=== PATIENT | female | born 2000 | race Caucasian/White ===

== ENCOUNTER 2018-03-22 22:51 | Outpatient (CLI) | END 2018-03-23 01:40 | disposition home or self-care (01) ==

== ENCOUNTER 2018-03-24 13:58 | Inpatient (IN) | END 2018-03-26 16:02 | disposition home or self-care (01) | DRG 832 ==

== ENCOUNTER 2018-05-01 15:53 | Outpatient (CLI) | payer BC ==
[~2018-05-01] VITALS: Ht 154.9 cm; Wt 75.0 kg
[~2018-05-01 15:53] MED LIST: PREN-21 PO
[2018-05-01 16:03] VITALS: Ht 154.9 cm; Wt 75.0 kg
[2018-05-01 16:04] VITALS: BP 132/75; PULSE 80; RESP 18
[2018-05-01] MEDS ORDERED: LACTATED RINGER'S 1,000 ML IV ONE (17:30)
[2018-05-01] MEDS ORDERED: LACTATED RINGER'S 1,000 ML IV SCH (17:30)
[2018-05-01] MEDS ORDERED: BETAMET NA PHOS/AC(6 MG/ML) 2 ML INJ SYG IM ONE (19:30)
[2018-05-01] MEDS ORDERED: AL HYDROX/MG HYDROX/SIMETH 30 ML CUP PO PRN (21:00)
--- NOTE | 2018-05-02 05:28 | TRIAGE ---
OB Triage Datetime Report Generated by CPN: 05/02/2018 05:27 Datetime: 05/02/2018 21:00 Stage of : OB Triage Labor Evaluation Frequency: X5 Monitor Mode: External Duration (sec)2399: 60-90 Quality: Mild Pattern: Normal: <= 5 Contractions in 10 Minutes Resting Tone [place]: Relaxed Heart Rate FHR Baseline Rate: 125 Monitor Mode: External US FHR Baseline Changes: No Baseline Change Variability: Moderate 6-25 bpm Accelerations: 15X15 Decelerations: None Category: Category I Datetime: 05/02/2018 20:00 Stage of : OB Triage Labor Evaluation Frequency: X1 Monitor Mode: External Duration (sec)2399: 40 Quality: Mild Pattern: Normal: <= 5 Contractions in 10 Minutes Resting Tone [place]: Relaxed Heart Rate FHR Baseline Rate: 125 Monitor Mode: External US FHR Baseline Changes: No Baseline Change Variability: Moderate 6-25 bpm Accelerations: 15X15 Decelerations: None Category: Category I Datetime: 05/01/2018 20:25 Stage of : OB Triage Datetime: 05/01/2018 19:31 Monitor Mode: External US Datetime: 05/01/2018 18:53 Labor Evaluation Frequency: 0 Pattern: Normal: <= 5 Contractions in 10 Minutes Resting Tone [place]: Relaxed Heart Rate FHR Baseline Rate: 135 Monitor Mode: External US FHR Baseline Changes: No Baseline Change Variability: Moderate 6-25 bpm Accelerations: 15X15 Decelerations: None Category: Category I Datetime: 05/01/2018 18:00 Labor Evaluation Frequency: 0 Pattern: Normal: <= 5 Contractions in 10 Minutes Resting Tone [place]: Relaxed Heart Rate FHR Baseline Rate: 135 Monitor Mode: External US FHR Baseline Changes: No Baseline Change Variability: Moderate 6-25 bpm Accelerations: 15X15 Decelerations: None Category: Category I Datetime: 05/01/2018 16:50 Labor Evaluation Frequency: occas Monitor Mode: External Duration (sec)2399: 50-60 Quality: Mild Pattern: Normal: <= 5 Contractions in 10 Minutes Resting Tone [place]: Relaxed Heart Rate FHR Baseline Rate: 135 Monitor Mode: External US Variability: Moderate 6-25 bpm Accelerations: 15X15 Decelerations: None Category: Category I Datetime: 05/01/2018 16:06 Assessment Type: Triage Maternal Assessment Level of Consciousness: Fully Conscious DTR's/Clonus: DTRs 2+; No Clonus Headache: Denies Blurred Vision: No Respiratory Effort: Unlabored; Regular Rhythm; Equal Expansion Breath Sounds, Left: Clear and Equal Breath Sounds, Right: Clear and Equal Nausea/Vomiting: Denies RUQ Epigastric Pain: Denies Lower Extremities Edema: None Degree: None Upper Extremities Edema: None Degree: None Facial Edema: None Fall Risk Assessment History of Falling: (0) No Secondary Diagnosis: (0) No Ambulatory Aid: (0) Bedrest/Nurse Assist IV Therapy: (0) No Gait: (0) Normal/Bedrest/Immobile Mental Status: (0) Oriented to Own Ability Fall Score: 0 Fall Risk Score Definition: No Risk: No action required Datetime: 05/01/2018 16:05 Time of Arrival: 05/01/2018 15:44 EGA: 36.4 Arrived By: Ambulatory Arrived From: Home Chief Complaint: gallstones Movement: Present Contractions: Denies/Absent Rupture of Membranes: Denies Vaginal Bleeding: None Vaginal Discharge: Denies Recent Sexual Intercouse: Denies Abdominal Trauma: Not Applicable Patient Complaints: Other Initial Plan: nst Datetime: 03/26/2018 11:23 Temperature Route: Oral Datetime: 03/26/2018 09:58 Labor Evaluation Frequency: NONE Monitor Mode: External Pattern: Normal: <= 5 Contractions in 10 Minutes Resting Tone [place]: Relaxed Heart Rate FHR Baseline Rate: 125 Monitor Mode: External US FHR Baseline Changes: No Baseline Change Variability: Moderate 6-25 bpm Accelerations: 15X15 Decelerations: None Category: Category I Datetime: 03/26/2018 07:45 Assessment Type: Ongoing Assessment Maternal Assessment Level of Consciousness: Fully Conscious DTR's/Clonus: DTRs 2+; No Clonus Headache: Denies Blurred Vision: No Respiratory Effort: Unlabored; Regular Rhythm; Equal Expansion Breath Sounds, Left: Clear and Equal Breath Sounds, Right: Clear and Equal Nausea/Vomiting: Denies RUQ Epigastric Pain: Denies Lower Extremities Edema: None Upper Extremities Edema: None Facial Edema: None Fall Risk Assessment History of Falling: (0) No Secondary Diagnosis: (0) No Ambulatory Aid: (0) Bedrest/Nurse Assist IV Therapy: (20) Yes Gait: (0) Normal/Bedrest/Immobile Mental Status: (0) Oriented to Own Ability Fall Score: 20 Fall Risk Score Definition: No Risk: No action required Datetime: 03/26/2018 07:20 Stage of : Antepartum Datetime: 03/26/2018 06:35 Stage of : Antepartum Datetime: 03/26/2018 05:29 Stage of : Antepartum Temperature Route: Oral Contraction Comments: PT DENIES CRAMPING Comments: PT STATES + FM Pain Presence: None/Denies Pain Type: N/A Pain Assessment Comments: PT DENIES ANY NEEDS AT THIS TIME. Vaginal Exam Membrane Status: Intact Vaginal Bleeding: None Datetime: 03/26/2018 03:23 Stage of : Antepartum Pain Presence: None/Denies Pain Type: N/A Pain Assessment Comments: PT DENIES ANY NEEDS AT THIS TIME. Datetime: 03/26/2018 00:13 Stage of : Antepartum Temperature Route: Oral Contraction Comments: PT DENIES CRAMPING Comments: PT STATES + FM Pain Presence: None/Denies Pain Type: N/A Pain Assessment Comments: PT DENIES ANY NEEDS AT THIS TIME Vaginal Exam Membrane Status: Intact Vaginal Bleeding: None Datetime: 03/25/2018 22:37 Monitor Mode: External Resting Tone [place]: Relaxed Contraction Comments: REMOVED. NST COMPLETED. Heart Rate FHR Baseline Rate: 130 Monitor Mode: External US Variability: Moderate 6-25 bpm Accelerations: 15X15 Decelerations: None Category: Category I Comments: REMOVED. NST COMPLETED. Pain Presence: None/Denies Pain Type: N/A Datetime: 03/25/2018 21:51 Monitor Mode: External US Datetime: 03/25/2018 21:35 Monitor Mode: External Contraction Comments: APPLIED FOR NST Monitor Mode: External US Comments: APPLIED FOR NST Datetime: 03/25/2018 20:11 Stage of : Antepartum Assessment Type: Ongoing Assessment Maternal Assessment Level of Consciousness: Fully Conscious DTR's/Clonus: DTRs 2+; No Clonus Headache: Denies Blurred Vision: No Respiratory Effort: Unlabored; Regular Rhythm; Equal Expansion Breath Sounds, Left: Clear and Equal Breath Sounds, Right: Clear and Equal Nausea/Vomiting: Denies RUQ Epigastric Pain: Denies Lower Extremities Edema: None Degree: None Upper Extremities Edema: None Degree: None Facial Edema: None Temperature Route: Oral Fall Risk Assessment History of Falling: (0) No Secondary Diagnosis: (0) No Ambulatory Aid: (0) Bedrest/Nurse Assist IV Therapy: (0) No Gait: (0) Normal/Bedrest/Immobile Mental Status: (0) Oriented to Own Ability Fall Score: 0 Fall Risk Score Definition: No Risk: No action required Contraction Comments: PT DENIES CRAMPING Comments: PT STATES + FM Pain Assessment Pain Scale: 1 Pain Presence: Intermittent Pain Type: Stabbing Pain Location: RUQ Pain Goal: 2 Pain Relief Measures: Comfort Measures Pain Assessment Comments: PT STATES IT COMES AND GOES Vaginal Exam Membrane Status: Intact Vaginal Bleeding: None Datetime: 03/25/2018 14:33 Pain Assessment Pain Scale: 2 Pain Presence: None/Denies Pain Type: Sharp Pain Assessment Comments: urq Datetime: 03/25/2018 14:32 Labor Evaluation Frequency: 0 Monitor Mode: External Resting Tone [place]: Relaxed Datetime: 03/25/2018 12:30 Heart Rate FHR Baseline Rate: 130 Monitor Mode: External US FHR Baseline Changes: No Baseline Change Variability: Moderate 6-25 bpm Accelerations: 15X15 Decelerations: None Category: Category I Datetime: 03/25/2018 11:48 Labor Evaluation Frequency: 0 Monitor Mode: External Resting Tone [place]: Relaxed Heart Rate FHR Baseline Rate: 140 Monitor Mode: External US FHR Baseline Changes: No Baseline Change Variability: Moderate 6-25 bpm Accelerations: 15X15 Decelerations: None Category: Category I Datetime: 03/25/2018 10:47 Labor Evaluation Frequency: 1 Monitor Mode: External Duration (sec)2399: 50 Quality: Mild Resting Tone [place]: Relaxed Heart Rate FHR Baseline Rate: 130 Monitor Mode: External US FHR Baseline Changes: No Baseline Change Variability: Moderate 6-25 bpm Accelerations: 15X15 Decelerations: None Category: Category I Pain Presence: None/Denies Datetime: 03/25/2018 10:26 Pain Presence: None/Denies Datetime: 03/25/2018 09:45 Assessment Type: Ongoing Assessment Maternal Assessment Level of Consciousness: Fully Conscious DTR's/Clonus: DTRs 2+; No Clonus Headache: Denies Blurred Vision: No Respiratory Effort: Unlabored; Regular Rhythm; Equal Expansion Breath Sounds, Left: Clear and Equal Breath Sounds, Right: Clear and Equal Nausea/Vomiting: Denies RUQ Epigastric Pain: Denies Facial Edema: None Fall Risk Assessment History of Falling: (0) No Secondary Diagnosis: (0) No Ambulatory Aid: (0) Bedrest/Nurse Assist IV Therapy: (20) Yes Gait: (0) Normal/Bedrest/Immobile Mental Status: (0) Oriented to Own Ability Fall Score: 20 Fall Risk Score Definition: No Risk: No action required Datetime: 03/25/2018 09:22 Labor Evaluation Frequency: 0 Monitor Mode: External Resting Tone [place]: Relaxed Heart Rate FHR Baseline Rate: 135 Monitor Mode: External US FHR Baseline Changes: No Baseline Change Variability: Moderate 6-25 bpm Accelerations: 15X15 Decelerations: None Category: Category I Datetime: 03/25/2018 09:21 Pain Assessment Pain Scale: 2 Pain Assessment Comments: ruq Datetime: 03/25/2018 07:20 Labor Evaluation Frequency: x1 Monitor Mode: External Duration (sec)2399: 70 Quality: Mild Resting Tone [place]: Relaxed Heart Rate FHR Baseline Rate: 135 Monitor Mode: External US Variability: Moderate 6-25 bpm Accelerations: 15X15 Decelerations: None Category: Category I Pain Presence: None/Denies Datetime: 03/25/2018 06:20 Labor Evaluation Frequency: x1 Monitor Mode: External Duration (sec)2399: 50 Quality: Mild Resting Tone [place]: Relaxed Heart Rate FHR Baseline Rate: 135 Monitor Mode: External US Variability: Moderate 6-25 bpm Accelerations: 15X15 Decelerations: None Category: Category I Pain Presence: None/Denies Datetime: 03/25/2018 05:20 Labor Evaluation Frequency: 0 Monitor Mode: External Duration (sec)2399: denies Resting Tone [place]: Relaxed Heart Rate FHR Baseline Rate: 135 Monitor Mode: External US Variability: Moderate 6-25 bpm Accelerations: 15X15 Decelerations: None Category: Category I Pain Presence: None/Denies Datetime: 03/25/2018 04:20 Labor Evaluation Frequency: 0 Monitor Mode: External Duration (sec)2399: denies Resting Tone [place]: Relaxed Heart Rate FHR Baseline Rate: 135 Monitor Mode: External US Variability: Moderate 6-25 bpm Accelerations: 15X15 Decelerations: None Category: Category I Pain Presence: None/Denies Datetime: 03/25/2018 03:22 Labor Evaluation Frequency: x1 Monitor Mode: External Duration (sec)2399: 50 Quality: Mild Resting Tone [place]: Relaxed Heart Rate FHR Baseline Rate: 135 Monitor Mode: External US Variability: Moderate 6-25 bpm Accelerations: 15X15 Decelerations: None Category: Category I Pain Presence: None/Denies Datetime: 03/25/2018 02:20 Labor Evaluation Frequency: 0 Monitor Mode: External Duration (sec)2399: denies Resting Tone [place]: Relaxed Heart Rate FHR Baseline Rate: 135 Monitor Mode: External US Variability: Moderate 6-25 bpm Accelerations: 15X15 Decelerations: None Category: Category I Pain Presence: None/Denies Datetime: 03/25/2018 01:20 Labor Evaluation Frequency: x1 Monitor Mode: External Duration (sec)2399: 60 Quality: Mild Resting Tone [place]: Relaxed Heart Rate FHR Baseline Rate: 135 Monitor Mode: External US Variability: Moderate 6-25 bpm Accelerations: 15X15 Decelerations: None Category: Category I Pain Presence: None/Denies Datetime: 03/25/2018 00:20 Labor Evaluation Frequency: 0 Monitor Mode: External Resting Tone [place]: Relaxed Heart Rate FHR Baseline Rate: 145 Monitor Mode: External US Variability: Minimal - Undetectable to <=5 bpm Accelerations: 15X15 Decelerations: None Category: Category I Pain Presence: None/Denies Datetime: 03/24/2018 23:20 Labor Evaluation Frequency: 0 Monitor Mode: External Duration (sec)2399: denies Resting Tone [place]: Relaxed Heart Rate FHR Baseline Rate: 140 Monitor Mode: External US Variability: Moderate 6-25 bpm Accelerations: 15X15 Decelerations: None Category: Category I Pain Presence: None/Denies Datetime: 03/24/2018 22:20 Labor Evaluation Frequency: 0 Monitor Mode: External Duration (sec)2399: denies Resting Tone [place]: Relaxed Heart Rate FHR Baseline Rate: 145 Monitor Mode: External US Variability: Moderate 6-25 bpm Accelerations: 15X15 Decelerations: None Category: Category I Pain Presence: None/Denies Datetime: 03/24/2018 21:20 Labor Evaluation Frequency: 0 Monitor Mode: External Duration (sec)2399: denies Resting Tone [place]: Relaxed Heart Rate FHR Baseline Rate: 140 Monitor Mode: External US Variability: Moderate 6-25 bpm Accelerations: 15X15 Decelerations: None Category: Category I Pain Presence: None/Denies Datetime: 03/24/2018 20:20 Labor Evaluation Frequency: x1 per hr Monitor Mode: External Quality: Mild Resting Tone [place]: Relaxed Heart Rate FHR Baseline Rate: 145 Monitor Mode: External US Variability: Moderate 6-25 bpm Accelerations: 15X15 Decelerations: None Category: Category I Comments: from 1919 to 2019 Pain Presence: None/Denies Datetime: 03/24/2018 19:10 Stage of : Antepartum Assessment Type: Ongoing Assessment Maternal Assessment Level of Consciousness: Fully Conscious DTR's/Clonus: DTRs 2+; No Clonus Headache: Denies Blurred Vision: No Respiratory Effort: Unlabored; Regular Rhythm; Equal Expansion Breath Sounds, Left: Clear and Equal Breath Sounds, Right: Clear and Equal Nausea/Vomiting: Denies RUQ Epigastric Pain: Denies Lower Extremities Edema: None Degree: None Upper Extremities Edema: None Degree: None Facial Edema: None Temperature Route: Oral Fall Risk Assessment History of Falling: (0) No Secondary Diagnosis: (0) No Ambulatory Aid: (0) Bedrest/Nurse Assist IV Therapy: (0) No Gait: (0) Normal/Bedrest/Immobile Mental Status: (0) Oriented to Own Ability Fall Score: 0 Fall Risk Score Definition: No Risk: No action required Pain Presence: None/Denies Datetime: 03/24/2018 18:16 Labor Evaluation Frequency: 0 Monitor Mode: External Heart Rate FHR Baseline Rate: 145 Monitor Mode: External US FHR Baseline Changes: No Baseline Change Variability: Moderate 6-25 bpm Accelerations: 15X15 Decelerations: None Category: Category I Pain Presence: None/Denies Datetime: 03/24/2018 17:10 Labor Evaluation Frequency: 0 Monitor Mode: External Heart Rate FHR Baseline Rate: 140 Monitor Mode: External US FHR Baseline Changes: No Baseline Change Variability: Moderate 6-25 bpm Accelerations: 15X15 Decelerations: None Category: Category I Pain Presence: None/Denies Datetime: 03/24/2018 16:10 Labor Evaluation Frequency: 0 Monitor Mode: External Heart Rate FHR Baseline Rate: 135 Monitor Mode: External US FHR Baseline Changes: No Baseline Change Variability: Moderate 6-25 bpm Accelerations: 15X15 Decelerations: None Category: Category I Pain Presence: None/Denies Datetime: 03/24/2018 15:42 Monitor Mode: External US Decelerations: Variable Datetime: 03/24/2018 15:01 Stage of : Antepartum Assessment Type: Admission Assessment Vaginal Bleeding: None Maternal Assessment Level of Consciousness: Fully Conscious DTR's/Clonus: DTRs 2+; No Clonus Headache: Denies Blurred Vision: No Respiratory Effort: Unlabored; Regular Rhythm; Equal Expansion Breath Sounds, Left: Clear and Equal Breath Sounds, Right: Clear and Equal Nausea/Vomiting: Denies RUQ Epigastric Pain: Denies Lower Extremities Edema: None Degree: None Upper Extremities Edema: None Degree: None Facial Edema: None Fall Risk Assessment History of Falling: (0) No Secondary Diagnosis: (0) No Ambulatory Aid: (0) Bedrest/Nurse Assist IV Therapy: (0) No Gait: (0) Normal/Bedrest/Immobile Mental Status: (0) Oriented to Own Ability Fall Score: 0 Fall Risk Score Definition: No Risk: No action required Labor Evaluation Frequency: 0 Monitor Mode: External Heart Rate FHR Baseline Rate: 140 Monitor Mode: External US FHR Baseline Changes: No Baseline Change Variability: Moderate 6-25 bpm Accelerations: 15X15 Decelerations: None Category: Category I Pain Assessment Pain Scale: 4 Pain Presence: Intermittent Pain Type: Ache Pain Type: Dull; Ache Pain Location: Abdomen; Back Datetime: 03/24/2018 14:30 Stage of : OB Triage Maternal Assessment Level of Consciousness: Fully Conscious DTR's/Clonus: DTRs 1+ Headache: Denies Breath Sounds, Left: Clear and Equal Breath Sounds, Right: Clear and Equal Nausea/Vomiting: Denies RUQ Epigastric Pain: Denies Labor Evaluation Frequency: OCC Monitor Mode: External Duration (sec)2399: 50-60 Quality: Mild Pattern: Normal: <= 5 Contractions in 10 Minutes Resting Tone [place]: Relaxed Heart Rate FHR Baseline Rate: 135 Monitor Mode: External [place] Variability: Moderate 6-25 bpm Accelerations: 15X15 Decelerations: None Category: Category I Pain Assessment Pain Scale: 6 Pain Presence: Constant Pain Type: Ache Pain Location: Back Pain Goal: 3 Vaginal Exam Membrane Status: Intact Datetime: 03/24/2018 13:58 Maternal Assessment Level of Consciousness: Fully Conscious DTR's/Clonus: DTRs 1+ Headache: Denies Blurred Vision: No Respiratory Effort: Unlabored Breath Sounds, Left: Clear and Equal Breath Sounds, Right: Clear and Equal Nausea/Vomiting: Denies RUQ Epigastric Pain: Denies Facial Edema: None Labor Evaluation Frequency: X1 Monitor Mode: External Duration (sec)2399: 50-60 Quality: Mild Pattern: Normal: <= 5 Contractions in 10 Minutes Resting Tone [place]: Relaxed Heart Rate FHR Baseline Rate: 135 Monitor Mode: External US Variability: Moderate 6-25 bpm Accelerations: 15X15 Decelerations: None Category: Category I Pain Assessment Pain Scale: 6 Pain Presence: Constant Pain Type: Ache Pain Location: Back Pain Goal: 3 Vaginal Exam Membrane Status: Intact Datetime: 03/24/2018 13:00 Assessment Type: Triage Maternal Assessment Level of Consciousness: Fully Conscious DTR's/Clonus: DTRs 2+; No Clonus Headache: Denies Blurred Vision: No Respiratory Effort: Unlabored; Regular Rhythm; Equal Expansion Breath Sounds, Left: Clear and Equal Breath Sounds, Right: Clear and Equal Nausea/Vomiting: Denies RUQ Epigastric Pain: Denies Lower Extremities Edema: None Degree: None Upper Extremities Edema: None Degree: None Facial Edema: None Fall Risk Assessment History of Falling: (0) No Secondary Diagnosis: (0) No Ambulatory Aid: (0) Bedrest/Nurse Assist IV Therapy: (0) No Gait: (0) Normal/Bedrest/Immobile Mental Status: (0) Oriented to Own Ability Fall Score: 0 Fall Risk Score Definition: No Risk: No action required Datetime: 03/24/2018 12:59 Time of Arrival: 03/24/2018 14:55 EGA: 31.1 Arrived By: Ambulatory Arrived From: Home Chief Complaint: PT CAME IN C/O BACK PAIN AND SOB Movement: Present Contractions: Denies/Absent Rupture of Membranes: Denies Vaginal Discharge: Denies Recent Sexual Intercouse: Denies Abdominal Trauma: Not Applicable Patient Complaints: Back Pain; Shortness of Breath Additional Patient Complaints: NONE Datetime: 03/23/2018 01:31 Labor Evaluation Frequency: X0 Monitor Mode: External Duration (sec)2399: X0 Pattern: Normal: <= 5 Contractions in 10 Minutes Resting Tone [place]: Relaxed Heart Rate FHR Baseline Rate: 135 Monitor Mode: External [place] Variability: Moderate 6-25 bpm Accelerations: 15X15 Decelerations: None Category: Category I Datetime: 03/23/2018 01:00 Stage of : OB Triage Labor Evaluation Frequency: X0 Monitor Mode: External Duration (sec)2399: X0 Pattern: Normal: <= 5 Contractions in 10 Minutes Resting Tone [place]: Relaxed Heart Rate FHR Baseline Rate: 135 Monitor Mode: External US Variability: Moderate 6-25 bpm Accelerations: 15X15 Decelerations: None Category: Category I Datetime: 03/23/2018 00:00 Labor Evaluation Frequency: X0 Monitor Mode: External Duration (sec)2399: X0 Pattern: Normal: <= 5 Contractions in 10 Minutes Resting Tone [place]: Relaxed Heart Rate FHR Baseline Rate: 135 Monitor Mode: External US Variability: Moderate 6-25 bpm Accelerations: 15X15 Decelerations: None Category: Category I Datetime: 03/22/2018 23:15 Assessment Type: Triage Maternal Assessment Level of Consciousness: Fully Conscious DTR's/Clonus: DTRs 2+; No Clonus Headache: Denies Blurred Vision: No Respiratory Effort: Unlabored; Regular Rhythm; Equal Expansion Breath Sounds, Left: Clear and Equal Breath Sounds, Right: Clear and Equal Nausea/Vomiting: Denies RUQ Epigastric Pain: Denies Lower Extremities Edema: None Upper Extremities Edema: None Facial Edema: None Fall Risk Assessment History of Falling: (0) No Secondary Diagnosis: (0) No Ambulatory Aid: (0) Bedrest/Nurse Assist IV Therapy: (0) No Gait: (0) Normal/Bedrest/Immobile Mental Status: (0) Oriented to Own Ability Fall Score: 0 Fall Risk Score Definition: No Risk: No action required Datetime: 03/22/2018 23:00 Time of Arrival: 03/22/2018 22:48 EGA: 30.6 Arrived By: Ambulatory Arrived From: Home Chief Complaint: CAME IN FOR 2ND DOSE OF BETAMETHASONE Movement: Present Contractions: Denies/Absent Rupture of Membranes: Denies Vaginal Bleeding: None (Annotations: Data stored by CPN on behalf of user) Vaginal Discharge: Denies Recent Sexual Intercouse: Denies Abdominal Trauma: Not Applicable Patient Complaints: None Time Provider Notified: 03/22/2018 23:18 Provider Notified: RHONA Initial Plan: EFM, NST, BPP, UA URINE CULTURE, CBC, TYLENOL 100MG POX1, BETAMETASONE 12 MG IMX1
[2018-05-02] MEDS ORDERED: PRENATAL VITAMIN PO SCH (09:00)
--- NOTE | 2018-05-15 02:07 | PN ---
Triage Information Date/Time 05/15/18 for service rendered on 05/01/18 late entry Reason for visit: Abd/pelvic pain Weeks of Gestation 36w4d /Para Diabetes: none Hypertention: none Additional information known to have gall stone having RUQ pain Objective Heart Rate: 130's Heart Rate Comments CAT I tracing Contractions: None Results/Medications Imaging Results BPP 8/8 MAIK 13.3 abd U/S multiple calcified gall stones markedly dilated common duct 13mm no evidence of cholecystitis add ; called Dr frazier left message for GS consult regarding common duct dilatation no response while waiting symptom got alleviated- will contact patient after speak with GS Disposition: Discharge Assessment/Plan A IUP 36w4d RUQ Pain 2 to gall stones,pain resolved P discharge home f/u after GS consult MICHA MELGOZA MD May 15, 2018 02:07
== END 2018-05-01 21:30 | disposition home or self-care (01) ==
LOC: OBT 15:53 → L-D 15:54 → UNDOADMIN 20:45 → PP1 20:45 → OBT 20:45
PROVIDERS: ATTEND Obstetrics & Gynecology
DX: O99.613 Diseases of the digestive system complicating pregnancy, third trimester (principal); K80.20 Calculus of gallbladder without cholecystitis without obstruction; Z3A.36 36 weeks gestation of pregnancy
CPT/HCPCS: 76705; 76818; 80053; 81001; 82150; 83690; 85025; 96360; 96372; J0702; J7120; Z7500; Z7610; G0463

== ENCOUNTER 2018-05-02 19:36 | Outpatient (CLI) | END 2018-05-02 21:20 | disposition home or self-care (01) ==

== ENCOUNTER 2018-05-18 20:07 | Inpatient (IN) | payer BC ==
[~2018-05-18] VITALS: Ht 154.9 cm; Wt 74.7 kg
[2018-05-18 20:29] VITALS: BP 150/97; PULSE 78; RESP 20
[2018-05-18 20:31] VITALS: Ht 154.9 cm; Wt 74.7 kg
[2018-05-18] MEDS ORDERED: LACTATED RINGER'S 1,000 ML IV PRN (20:35)
[2018-05-18] MEDS ORDERED: LACTATED RINGER'S 1,000 ML IV SCH (20:35)
[2018-05-18] MEDS ORDERED: OXYTOCIN 30 UNITS/LR 500 ML IV SCH ×2 (21:00)
[2018-05-18] MEDS ORDERED: MISOPROSTOL 200 MCG TAB PR PRN (21:00)
[2018-05-18] MEDS ORDERED: LIDOCAINE 1% (MPF) 30 ML INJ INJ PRN (21:00)
[2018-05-18] MEDS ORDERED: OXYTOCIN 30 UNITS/LR 500 ML IV PRN (21:00)
[2018-05-18] MEDS ORDERED: METHYLERGONOVINE 0.2 MG INJ IM PRN (21:00)
[2018-05-18] MEDS ORDERED: CARBOPROST 250 MCG INJ IM PRN (21:00)
[2018-05-18] MEDS ORDERED: IBUPROFEN 600 MG TAB PO PRN (21:00)
[2018-05-18] MEDS ORDERED: BUTORPHANOL 2 MG INJ IV PRN (21:00)
--- NOTE | 2018-05-18 21:08 | TRIAGE ---
OB Triage Datetime Report Generated by CPN: 05/18/2018 21:07 Datetime: 05/18/2018 21:05 Time of Arrival: 05/18/2018 20:03 EGA: 39.0 Arrived By: Ambulatory Arrived From: Home Chief Complaint: UC'S SINCE 06:30 Movement: Present Contractions: Regular Time Contractions Began: 05/18/2018 06:30 Contractions: Q5MIN Rupture of Membranes: Denies Vaginal Bleeding: None Vaginal Discharge: Denies Recent Sexual Intercouse: Denies Abdominal Trauma: Not Applicable Patient Complaints: Contractions Time Provider Notified: 05/18/2018 20:33 Provider Notified: RHONA Initial Plan: EFM, SVE, CALL OB Datetime: 05/18/2018 21:03 Time of Arrival: 05/18/2018 20:33 EGA: 39.0 Arrived By: Ambulatory Arrived From: OB TRIAGE Datetime: 05/18/2018 20:22 Vaginal Exam Dilatation (cms): 3.0 Effacement (%): 70 Station: -2 Exam By: farzad silverman Cervix, Consistency: Soft Cervix, Position: Midposition Presentation 'A': Cephalic Datetime: 05/18/2018 20:03 Stage of : OB Triage Assessment Type: Triage Maternal Assessment Level of Consciousness: Fully Conscious Headache: Denies Blurred Vision: No Respiratory Effort: Unlabored; Regular Rhythm; Equal Expansion Nausea/Vomiting: Denies RUQ Epigastric Pain: Denies Facial Edema: None Temperature Route: Axillary Fall Risk Assessment History of Falling: (0) No Secondary Diagnosis: (0) No Ambulatory Aid: (0) Bedrest/Nurse Assist IV Therapy: (0) No Gait: (0) Normal/Bedrest/Immobile Mental Status: (0) Oriented to Own Ability Fall Score: 0 Fall Risk Score Definition: No Risk: No action required Datetime: 05/02/2018 21:16 Stage of : OB Triage Labor Evaluation Monitor Mode: External Quality: Mild Pattern: Normal: <= 5 Contractions in 10 Minutes Resting Tone [place]: Relaxed Heart Rate FHR Baseline Rate: 130 Monitor Mode: External US FHR Baseline Changes: No Baseline Change Variability: Moderate 6-25 bpm Accelerations: 15X15 Decelerations: None Category: Category I Datetime: 05/02/2018 19:30 EGA: 36.5 Datetime: 05/01/2018 16:06 Fall Score: 0 Fall Risk Score Definition: No Risk: No action required Datetime: 05/01/2018 16:05 EGA: 36.4 Datetime: 03/26/2018 07:45 Fall Score: 20 Fall Risk Score Definition: No Risk: No action required Datetime: 03/25/2018 20:11 Fall Score: 0 Fall Risk Score Definition: No Risk: No action required Datetime: 03/25/2018 09:45 Fall Score: 20 Fall Risk Score Definition: No Risk: No action required Datetime: 03/24/2018 19:10 Fall Score: 0 Fall Risk Score Definition: No Risk: No action required Datetime: 03/24/2018 15:01 Fall Score: 0 Fall Risk Score Definition: No Risk: No action required Datetime: 03/24/2018 13:00 Fall Score: 0 Fall Risk Score Definition: No Risk: No action required Datetime: 03/24/2018 12:59 EGA: 31.1 Datetime: 03/22/2018 23:15 Fall Score: 0 Fall Risk Score Definition: No Risk: No action required Datetime: 03/22/2018 23:00 EGA: 30.6
[2018-05-18] MEDS ORDERED: ONDANSETRON 4 MG INJ IV STA (22:57)
[2018-05-18] MEDS ORDERED: MINERAL OIL LIGHT 10 ML VIAL ONE (23:46)
[2018-05-19] MEDS ORDERED: MINERAL OIL LIGHT 10 ML VIAL TOP PRN
--- NOTE | 2018-05-19 01:35 | HP ---
Date/Time of Note Date/Time of Note DATE: 05/19/18 TIME: 01:29 OB - History Hx of Present Free Text/Dictation 18 y.o primigravida at 6eeks in in active lavor with intact membrane. Initial VE 3cm/70/-2 EFM CAT I tracing GBS neg Her was complicated with cholelithiasis with common bile duct dilatati on admitted for expectanta managemenrt. Chief Complaint: uc's Estimated Due Date: May 25, 2018 : 1 Para: 0 Spontaneous : 0 Therapeutic : 0 Ultrasounds: Normal mid trimester US Obstetrical Complications: None Medical Complications: None, Gastrointestinal (cholelitiasis) Past Family/Social History * Past Medical, Surgical, Family and Obstetric Histories reviewed from chart. Blood Type: A+ Rubella: immune RPR/VDRL: Negative GBS Status: Negative HBsAG: Negative OB Admission Exam Vital Signs Vital Signs Vital Signs Date Temp Pulse Resp B/P (MAP) Pulse Ox O2 O2 Flow FiO2 Time Delivery Rate 05/18/18 98.5 78 20 150/97 Room Air 20:29 (114) Physical Exam HEENT: WNL Heart: Rhythm Normal Lungs: Clear, Equal Abdomen: WNL Extremities: Normal Reflexes: Normal Cervical Dilatation: 3cm Effacement: 75% Station: -2 Membranes: Intact Amniotic Fluid: Unevaluable Heart Rate: 130's Accelerations: Accelerations Present Decelerations: No Decelerations Varibility: Moderate Contractions on Admission: < 5 Minutes Apart Intensity: Moderate Last 72 hours Lab Results CBC & BMP 05/18/18 20:54 Liver Function Test 05/18/18 20:54 Alanine Aminotransferase (ALT/SGPT) 15 Albumin 4.0 Alkaline Phosphatase 298 H Aspartate Amino Transf (AST/SGOT) 28 Direct Bilirubin 0.00 Total Protein 8.2 H OB Assessment/Plan Reason for admission: active labor Other Assessment: IUP 39w cholelithiasis in labor Plan: Expectant Management MICHA MELGOZA MD May 19, 2018 01:35
--- NOTE | 2018-05-19 01:37 | LDN ---
Date/Time of Note Date/Time of Note DATE: 05/19/18 TIME: 01:35 Delivery Summary of normal female Weeks of Gestation 39w Placenta Delivered: Spontaneously Meconium: none Episiotomy: No Perineal laceration: 1 Laceration repair: 000ch gut with SH Anesthesia type: Local Estimated blood loss: 80 Sponge & Needle done & correct: Yes All needle counts correct: Yes Any foreign bodies felt in the: No Delivery Information Sex Infant Sex: female Apgars 1 Minute: 8 5 Minute: 9 Suctioning Nose & mouth suctioned at heidy: Yes Delee suction performed: No Umbilical Cord Umbilical cord with: 3 Vessels Cord presentations: no nuchal cord Cord Blood was obtained: Yes Mother & Baby Disposition Disposition Mom & Baby to Maternity; Good: Yes Mom transferred to: Other Baby to NICU: No () MICHA MELGOZA MD May 19, 2018 01:37
[2018-05-19 03:15] VITALS: BP 130/84; PULSE 70; RESP 20
[2018-05-19] MEDS ORDERED: OXYCODONE/ASPIRIN (4.88/325) TAB PO PRN ×2 (03:30)
[2018-05-19] MEDS ORDERED: METHYLERGONOVINE 0.2 MG INJ IM PRN (03:30)
[2018-05-19] MEDS ORDERED: MISOPROSTOL 200 MCG TAB PR PRN (03:30)
[2018-05-19] MEDS ORDERED: OXYTOCIN 30 UNITS/LR 500 ML IV PRN (03:30)
[2018-05-19] MEDS ORDERED: CARBOPROST 250 MCG INJ IM PRN (03:30)
[2018-05-19] MEDS ORDERED: BENZOCAINE 20% 56 ML SPRAY TOP PRN (03:30)
[2018-05-19] MEDS ORDERED: WITCH HAZEL/GLYCERIN PAD PR PRN (03:30)
[2018-05-19] MEDS ORDERED: ZOLPIDEM 5 MG TAB PO PRN (03:30)
[2018-05-19] MEDS: LANOLIN HPA 1 PKT TOP PRN ×2 (03:42→03:43)
[2018-05-19] MEDS: IBUPROFEN 600 MG TAB PO SCH ×3 (05:19→17:36)
[2018-05-19 08:00] VITALS: BP 115/55; PULSE 69; RESP 18
[2018-05-19] MEDS: PRENATAL VITAMIN PO SCH (09:19)
[2018-05-19] MEDS: SENNA/DOCUSATE NA (8.6MG/50MG) TAB PO SCH ×2 (09:19→21:42)
[2018-05-19 16:00] VITALS: BP 114/68; PULSE 88; RESP 18
--- NOTE | 2018-05-19 18:09 | QN ---
Documentation Comment doing fine without complaints vss afebrile fundus firm lochia min calf neg for tenderness Stable S/P MICHA MELGOZA MD May 19, 2018 18:09
[2018-05-19 20:00] VITALS: BP 106/58; PULSE 68; RESP 20
[2018-05-20] MEDS: IBUPROFEN 600 MG TAB PO SCH ×5 (00:31→23:26)
[2018-05-20 04:00] VITALS: BP 113/53; PULSE 62; RESP 16
[2018-05-20 08:00] VITALS: BP 96/53; PULSE 59; RESP 18
[2018-05-20] MEDS: PRENATAL VITAMIN PO SCH (08:20)
[2018-05-20] MEDS: SENNA/DOCUSATE NA (8.6MG/50MG) TAB PO SCH ×2 (08:20→21:22)
[2018-05-20 15:53] VITALS: BP 111/67; PULSE 68; RESP 18
--- NOTE | 2018-05-20 16:57 | QN ---
Documentation Comment no c/o vss afebrile fundus firm lochia min calf neg A S/P P discharge home MICHA MELGOZA MD May 20, 2018 16:57
[2018-05-20 20:30] VITALS: BP 112/65; PULSE 82; RESP 18
[2018-05-21 04:10] VITALS: BP 122/83; PULSE 77; RESP 18
[2018-05-21] MEDS: IBUPROFEN 600 MG TAB PO SCH ×3 (05:37→18:15)
[2018-05-21 08:00] VITALS: BP 112/60; PULSE 59; RESP 16
[2018-05-21] MEDS ORDERED: DIPHTH/TET/ACEL PERTUSS (ADULT) 0.5 ML VIAL IM* ONE (09:00)
[2018-05-21] MEDS: SENNA/DOCUSATE NA (8.6MG/50MG) TAB PO SCH (09:01)
[2018-05-21] MEDS: PRENATAL VITAMIN PO SCH (09:01)
[2018-05-21 15:29] VITALS: BP 122/64; PULSE 77; RESP 20
--- NOTE | 2018-05-21 19:33 | PD.PPDC ---
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
--- NOTE | 2018-05-21 19:35 | DS ---
Date/Time of Note Date/Time of Note DATE: 05/21/18 TIME: 19:34 Obstetrical Discharge Record Final Diagnosis Final Diagnosis: Term delivered Vaginal Delivery Obstetrical Delivery: Spontaneous Complications Augmentation: No Induction: No Rupture of Membranes: No Condition on Discharge Physical Assessment Last Vitals: vss afebrile Voiding: Yes Bowel Movement: No Breast: Soft, non-tender Fundus: Firm Abdomen and Incision: n/a Episiotomy: n/a Calf Tenderness: No Patient Condition: Stable MICHA MELGOZA MD May 21, 2018 19:35
[2018-05-21 19:50] VITALS: BP 133/71; PULSE 93; RESP 18
== END 2018-05-21 20:10 | disposition home or self-care (01) | DRG 807 ==
LOC: OBT 20:07 → L-D 20:08 → OBT 20:33 → L-D 20:46 → PP1 05-19 03:18
PROVIDERS: ADMIT Obstetrics & Gynecology; ATTEND Obstetrics & Gynecology
PROC: 10E0XZZ Delivery of Products of Conception, External Approach (ICD-10-PCS; principal; 2018-05-19)
DX: O99.62 Diseases of the digestive system complicating childbirth (principal); Z37.0 Single live birth; K80.20 Calculus of gallbladder without cholecystitis without obstruction; Z3A.39 39 weeks gestation of pregnancy
CPT/HCPCS: 80053; 81003; 84560; 85025; 85384; 85610; 85730; 86592; 86850; 86900; 86901; 87086; 87340; 90715; G0463; J0595; J2405; J2590; J7120

== ENCOUNTER 2018-07-06 19:06 | Emergency (ER) | payer SELFPAY ==
[~2018-07-06] VITALS: Wt 63.3 kg
== END 2018-07-06 23:48 | disposition left against medical advice (07) ==
LOC: FTE 19:06
DX: Z53.21 Procedure and treatment not carried out due to patient leaving prior to being seen by health care provider (principal)

== ENCOUNTER 2018-07-07 03:19 | Inpatient (IN) | payer BC ==
[~2018-07-07] VITALS: Ht 154.9 cm; Wt 67.2 kg
[2018-07-07 04:58] VITALS: BP 155/98; PULSE 102; RESP 18
[2018-07-07 05:00] VITALS: Ht 154.9 cm; Wt 67.2 kg
[2018-07-07] MEDS ORDERED: morphine 2 MG INJ IV PRN (06:00)
[2018-07-07] MEDS ORDERED: ONDANSETRON 4 MG INJ IV PRN (06:00)
[2018-07-07] MEDS ORDERED: NACL 0.9% 3 ML SYG IV SCH (06:00)
[2018-07-07] MEDS: DEXTROSE 5%-0.45% NACL 1,000 ML IV SCH ×3 (06:14→21:49)
--- NOTE | 2018-07-07 07:00 | HP ---
Date/Time of Note Date/Time of Note DATE: 07/07/18 TIME: 06:58 Assessment/Plan VTE Prophylaxis Risk score (from Ns)>0 risk: 1 SCD applied (from Nsg): Yes Pharmacological prophylaxis: NA/contraindicated Pharm contraindication: low risk/ambulating Lines/Catheters IV Catheter Type (from Nrsg): Saline Lock Assessment/Plan Assessment/Plan 18-year-old female with recently diagnosed gallstones transferred from an outside hospital for abdominal pain, secondary to gallstone pancreatitis and possibly cholecystitis and choledocholithiasis PLAN Keep n.p.o. with IV fluid IV antibiotic HIDA scan Surgical consult HPI/ROS Admit Date/Time Admit Date/Time Jul 07, 2018 at 04:52 Hx of Present Illness This is a 18-year-old female with a recent diagnosis of gallstones who initially presented on outside hospital complaining of abdominal pain and vomiting. Abdominal ultrasound shows cholelithiasis with possible cholecystitis as well as dilated CBD measuring 12 mm. She was transferred to [facility] for insurance reasons. At the outside facility, lipase was around 800. LFTs WNL. Patient is actually scheduled to have an outpatient cholecystectomy tomorrow, however because of the pain she decided to go to the hospital for evaluation. PMH/Family/Social Past Medical History Medical History: gallstones Medications Current Medications Dextrose/Sodium Chloride 1,000 ml @ 120 mls/hr Q8H20M IV Last administered on 07/07/18at 06:14; Admin Dose 120 MLS/HR; Start 07/07/18 at 05:55 IV Flush (NS 3 ml) 3 ml PER PROTOCOL IV ; Start 07/07/18 at 06:00 Ondansetron HCl (Zofran Inj) 4 mg Q6H PRN IV NAUSEA/VOMITING; Start 07/07/18 at 06:00 Morphine Sulfate (morphine) 2 mg Q4H PRN IV .SEVERE PAIN 7-10; Start 07/07/18 at 06:00 Coded Allergies: No Known Allergy (Unverified , 05/02/18) Past Surgical History Past Surgical Hx: no surgical history Family History Significant Family History: no pertinent family hx Social History Alcohol Use: none Smoking Status: Never smoker Drug Use: none Exam/Review of Systems Vital Signs Vitals Vital Signs Date Temp Pulse Resp B/P (MAP) Pulse Ox O2 O2 Flow FiO2 Time Delivery Rate 07/07/18 98.2 102 18 155/98 97 Room Air 04:58 (117) Exam Constitutional: alert, oriented, well developed Eyes: EOMI, PERRL Respiratory: clear to auscultation, normal air movement Cardiovascular: regular rate and rhythm, nl pulses Gastrointestinal: soft, tender Extremities: normal pulses SAI KILGORE MD Jul 07, 2018 07:00
[2018-07-07] MEDS: PIPER-TAZO 3.375 GM IV (PMX) 100 ML IVPB SCH ×4 (07:53→23:56)
[2018-07-07 08:37] VITALS: BP 148/92; PULSE 91; RESP 18
[2018-07-07] MEDS: morphine 4 MG/ML VIAL IV PRN ×2 (08:45→15:50)
--- NOTE | 2018-07-07 13:21 | CONS ---
Assessment/Plan Assessment/Plan Hospital Course (Demo Recall) Summary Assessment and Plan: Assessment: Gallstone pancreatitis Possible GOO visualized on imaging Dilated CBD- without evidence of cholelithiasis Plan: Strict n.p.o. Push IV fluids Pain management Antiemetic medication as needed EGD Dickinson with possible ERCP depending on ability to access biliary tree as well as degree of pancreatitis noted tomorrow Monitor labs [Endoscopy - risks/benefits/alternatives/indications of procedure and sedation/anesthesia discussed with patient who states understading and gives informed consent to proceed. PARQ held and questions were answered.] Patient seen in collaboration with Dr. Retana CC: CAROLYN RETANA MD ; Consultation Date/Type/Reason Admit Date/Time Jul 07, 2018 at 04:52 Date of Consultation: Jul 07, 2018 Type of Consult GI Reason for Consultation Gallstone pancreatitis Date/Time of Note DATE: 07/07/18 TIME: 13:21 Hx of Present Illness This a 18-year-old female with past medical history of cholelithiasis. Patient was first diagnosed with symptomatically lithiasis when she was 30 weeks she is now 4 weeks and presented to an outside hospital with complaints of upper abdominal pain with radiation to the back. Workup here included an MRCP which revealed dilated common bile duct measuring 10 mm distally with no evidence of obstruction mass or stone. There is mild intrahepatic biliary ductal dilation. Cholelithiasis and the moderately distended gallbladder. No evidence of acute cholecystitis. Markedly distended stomach and proximal duodenum with air-fluid level suspicious for gastric outlet obstruction. 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 She additionally had a HIDA scan which showed persistent common bile duct uptake up to 2 hours post injection and visualization of gas or intestinal activity within normal time possibly represent physiologic uptake, partial common bile duct obstruction cannot be ruled out. No evidence of cystic duct obstruction. Labs reveal normal LFTs leukocytosis of 23.6 as well as thrombocytosis. Evaluation patient complains of upper abdominal pain she is currently n.p.o. receiving morphine sulfate 4 mg every 4 hours as well as Toradol. Patient has been started on Zosyn empirically I discussed plan for EGD tomorrow with possible ERCP pending on ability to access biliary tree and degree of pancreatitis tomorrow. Reviewed risk/benefits/alternatives the patient who verbalized understanding and is agreeable to procedures. Review of Systems: A 12 system, review was conducted and is negative except as noted in the HPI or here. Past Medical History Home Meds Reported Medications Ksu950/Iron Fumarate/FA/Dss ( 19 Tablet) 1 Each Tablet, 1 EACH PO DAILY, TAB 03/22/18 Medications Current Medications Dextrose/Sodium Chloride 1,000 ml @ 120 mls/hr Q8H20M IV Last administered on 07/07/18at 06:14; Admin Dose 120 MLS/HR; Start 07/07/18 at 05:55 IV Flush (NS 3 ml) 3 ml PER PROTOCOL IV ; Start 07/07/18 at 06:00 Ondansetron HCl (Zofran Inj) 4 mg Q6H PRN IV NAUSEA/VOMITING; Start 07/07/18 at 06:00 Piperacillin Sod/ Tazobactam Sod 100 ml @ 200 mls/hr Q6 IVPB Last administered on 07/07/18at 12:10; Admin Dose 200 MLS/HR; Start 07/07/18 at 07:00 Morphine Sulfate (morphine) 4 mg Q4H PRN IV .SEVERE PAIN 7-10 Last administered on 07/07/18at 08:45; Admin Dose 4 MG; Start 07/07/18 at 08:30 Ketorolac Tromethamine (Toradol) 30 mg Q6H PRN IV PAIN LEVEL 1-3; Start 07/07/18 at 08:30; Stop 07/10/18 at 08:29 Allergies: Coded Allergies: No Known Allergy (Unverified , 05/02/18) Social History Smoking Status: Never smoker Exam/Review of Systems Exam Vitals Vital Signs Date Temp Pulse Resp B/P (MAP) Pulse Ox O2 O2 Flow FiO2 Time Delivery Rate 07/07/18 98.3 91 18 148/92 100 Room Air 08:37 (110) Constitutional: alert, oriented Head: normocephalic Eyes: nl conjunctiva ENMT: nl external ears & nose Neck: supple, non-tender Respiratory: clear to auscultation Cardiovascular: regular rate and rhythm Gastrointestinal: soft, bowel sounds, tender (upper abd) Musculoskeletal: nl extremities to inspection Results Result Diagram: 07/07/18 0708 07/07/18 0708 Results 24hrs Laboratory Tests Test 07/07/18 07:08 White Blood Count 23.6 #H Red Blood Count 4.68 # Hemoglobin 12.1 # Hematocrit 39.1 # Mean Corpuscular Volume 83.5 Mean Corpuscular Hemoglobin 25.9 L Mean Corpuscular Hemoglobin Concent 30.9 L Red Cell Distribution Width 16.8 H Platelet Count 544 #H Mean Platelet Volume 10.7 H Immature Granulocytes % 0.600 H Neutrophils % 89.3 H Segmented Neutrophils % (Manual) 88 H Band Neutrophils % (Manual) 6 Lymphocytes % 3.6 L Lymphocytes % (Manual) 3 L Monocytes % 6.3 Monocytes % (Manual) 3 Eosinophils % 0.0 Basophils % 0.2 Nucleated Red Blood Cells % 0.0 Immature Granulocytes # 0.140 H Neutrophils # 21.1 H Neutrophils # (Manual) 21.1 H Band Neutrophils # 1.4 H Lymphocytes (Manual) 0.7 L Lymphocytes # 0.9 Monocytes # 1.5 H Monocytes # (Manual) 0.7 Eosinophils # 0.0 Basophils # 0.0 Nucleated Red Blood Cells # 0.0 Platelet Estimate INCREASED Giant Platelets 1 H Polychromasia 2+ Anisocytosis 1+ Microcytosis 1+ Ovalocytes 1+ Sodium Level 145 H Potassium Level 3.7 Chloride Level 105 Carbon Dioxide Level 28 Anion Gap 12 Blood Urea Nitrogen 13 Creatinine 0.47 Est Glomerular Filtrat Rate mL/min > 60 Glucose Level 159 Calcium Level 9.8 Total Bilirubin 0.2 Direct Bilirubin 0.00 Indirect Bilirubin 0.2 Aspartate Amino Transf (AST/SGOT) 31 Alanine Aminotransferase (ALT/SGPT) 16 Alkaline Phosphatase 65 Total Protein 8.1 Albumin 4.6 Globulin 3.50 H Albumin/Globulin Ratio 1.31 Medications Medication Current Medications Dextrose/Sodium Chloride 1,000 ml @ 120 mls/hr Q8H20M IV Last administered on 07/07/18at 06:14; Admin Dose 120 MLS/HR; Start 07/07/18 at 05:55 IV Flush (NS 3 ml) 3 ml PER PROTOCOL IV ; Start 07/07/18 at 06:00 Ondansetron HCl (Zofran Inj) 4 mg Q6H PRN IV NAUSEA/VOMITING; Start 07/07/18 at 06:00 Piperacillin Sod/ Tazobactam Sod 100 ml @ 200 mls/hr Q6 IVPB Last administered on 07/07/18at 12:10; Admin Dose 200 MLS/HR; Start 07/07/18 at 07:00 Morphine Sulfate (morphine) 4 mg Q4H PRN IV .SEVERE PAIN 7-10 Last administered on 07/07/18at 08:45; Admin Dose 4 MG; Start 07/07/18 at 08:30 Ketorolac Tromethamine (Toradol) 30 mg Q6H PRN IV PAIN LEVEL 1-3; Start 07/07/18 at 08:30; Stop 07/10/18 at 08:29 XAVIER JAVIER Jul 07, 2018 13:21
[2018-07-07 14:30] VITALS: BP 148/89; PULSE 93; RESP 18
--- NOTE | 2018-07-07 15:28 | PN ---
Date/Time of Note Date/Time of Note DATE: 07/07/18 TIME: 15:16 Assessment/Plan VTE Prophylaxis Risk score (from Nsg)>0 risk: 1 Pharmacological prophylaxis: NA/contraindicated Pharm contraindication: surgical contra Lines/Catheters IV Catheter Type (from Nrsg): Peripheral IV Assessment/Plan Hospital Course 1. Gallstone pancreatitis Follow-up on HIDA and MRCP Surgery and GI consultations obtained Monitor lipase 2. Possible cholecystitis Continue IV antibiotic Result Diagram: 07/07/18 0708 07/07/18 0708 Results 24hrs Laboratory Tests Test 07/07/18 07:08 White Blood Count 23.6 #H Red Blood Count 4.68 # Hemoglobin 12.1 # Hematocrit 39.1 # Mean Corpuscular Volume 83.5 Mean Corpuscular Hemoglobin 25.9 L Mean Corpuscular Hemoglobin Concent 30.9 L Red Cell Distribution Width 16.8 H Platelet Count 544 #H Mean Platelet Volume 10.7 H Immature Granulocytes % 0.600 H Neutrophils % 89.3 H Segmented Neutrophils % (Manual) 88 H Band Neutrophils % (Manual) 6 Lymphocytes % 3.6 L Lymphocytes % (Manual) 3 L Monocytes % 6.3 Monocytes % (Manual) 3 Eosinophils % 0.0 Basophils % 0.2 Nucleated Red Blood Cells % 0.0 Immature Granulocytes # 0.140 H Neutrophils # 21.1 H Neutrophils # (Manual) 21.1 H Band Neutrophils # 1.4 H Lymphocytes (Manual) 0.7 L Lymphocytes # 0.9 Monocytes # 1.5 H Monocytes # (Manual) 0.7 Eosinophils # 0.0 Basophils # 0.0 Nucleated Red Blood Cells # 0.0 Platelet Estimate INCREASED Giant Platelets 1 H Polychromasia 2+ Anisocytosis 1+ Microcytosis 1+ Ovalocytes 1+ Sodium Level 145 H Potassium Level 3.7 Chloride Level 105 Carbon Dioxide Level 28 Anion Gap 12 Blood Urea Nitrogen 13 Creatinine 0.47 Est Glomerular Filtrat Rate mL/min > 60 Glucose Level 159 Calcium Level 9.8 Total Bilirubin 0.2 Direct Bilirubin 0.00 Indirect Bilirubin 0.2 Aspartate Amino Transf (AST/SGOT) 31 Alanine Aminotransferase (ALT/SGPT) 16 Alkaline Phosphatase 65 Total Protein 8.1 Albumin 4.6 Globulin 3.50 H Albumin/Globulin Ratio 1.31 Subjective 24 Hr Interval Summary Gastrointestinal: pain Exam/Review of Systems Exam Vitals Vital Signs Date Temp Pulse Resp B/P (MAP) Pulse Ox O2 O2 Flow FiO2 Time Delivery Rate 07/07/18 98.3 91 18 148/92 100 Room Air 08:37 (110) Constitutional: alert, oriented Respiratory: clear to auscultation Cardiovascular: regular rate and rhythm Gastrointestinal: soft; No distended Musculoskeletal: nl extremities to inspection Results Results 24hrs Laboratory Tests Test 07/07/18 07:08 White Blood Count 23.6 #H Red Blood Count 4.68 # Hemoglobin 12.1 # Hematocrit 39.1 # Mean Corpuscular Volume 83.5 Mean Corpuscular Hemoglobin 25.9 L Mean Corpuscular Hemoglobin Concent 30.9 L Red Cell Distribution Width 16.8 H Platelet Count 544 #H Mean Platelet Volume 10.7 H Immature Granulocytes % 0.600 H Neutrophils % 89.3 H Segmented Neutrophils % (Manual) 88 H Band Neutrophils % (Manual) 6 Lymphocytes % 3.6 L Lymphocytes % (Manual) 3 L Monocytes % 6.3 Monocytes % (Manual) 3 Eosinophils % 0.0 Basophils % 0.2 Nucleated Red Blood Cells % 0.0 Immature Granulocytes # 0.140 H Neutrophils # 21.1 H Neutrophils # (Manual) 21.1 H Band Neutrophils # 1.4 H Lymphocytes (Manual) 0.7 L Lymphocytes # 0.9 Monocytes # 1.5 H Monocytes # (Manual) 0.7 Eosinophils # 0.0 Basophils # 0.0 Nucleated Red Blood Cells # 0.0 Platelet Estimate INCREASED Giant Platelets 1 H Polychromasia 2+ Anisocytosis 1+ Microcytosis 1+ Ovalocytes 1+ Sodium Level 145 H Potassium Level 3.7 Chloride Level 105 Carbon Dioxide Level 28 Anion Gap 12 Blood Urea Nitrogen 13 Creatinine 0.47 Est Glomerular Filtrat Rate mL/min > 60 Glucose Level 159 Calcium Level 9.8 Total Bilirubin 0.2 Direct Bilirubin 0.00 Indirect Bilirubin 0.2 Aspartate Amino Transf (AST/SGOT) 31 Alanine Aminotransferase (ALT/SGPT) 16 Alkaline Phosphatase 65 Total Protein 8.1 Albumin 4.6 Globulin 3.50 H Albumin/Globulin Ratio 1.31 Medications Medication Current Medications Dextrose/Sodium Chloride 1,000 ml @ 120 mls/hr Q8H20M IV Last administered on 07/07/18at 06:14; Admin Dose 120 MLS/HR; Start 07/07/18 at 05:55 IV Flush (NS 3 ml) 3 ml PER PROTOCOL IV ; Start 07/07/18 at 06:00 Ondansetron HCl (Zofran Inj) 4 mg Q6H PRN IV NAUSEA/VOMITING; Start 07/07/18 at 06:00 Piperacillin Sod/ Tazobactam Sod 100 ml @ 200 mls/hr Q6 IVPB Last administered on 07/07/18at 12:10; Admin Dose 200 MLS/HR; Start 07/07/18 at 07:00 Morphine Sulfate (morphine) 4 mg Q4H PRN IV .SEVERE PAIN 7-10 Last administered on 07/07/18at 08:45; Admin Dose 4 MG; Start 07/07/18 at 08:30 Ketorolac Tromethamine (Toradol) 30 mg Q6H PRN IV PAIN LEVEL 1-3; Start 07/07/18 at 08:30; Stop 07/10/18 at 08:29 KADEEM LEGGETT Jul 07, 2018 15:28
[2018-07-07 19:54] VITALS: BP 154/93; PULSE 102; RESP 20
[2018-07-07] MEDS: KETOROLAC 30 MG INJ IV PRN (21:49)
[2018-07-08] VITALS (17 sets, daily range): BP systolic 117–141; BP diastolic 58–92; PULSE 76–111; RESP 14–27
[2018-07-08] MEDS: KETOROLAC 30 MG INJ IV PRN ×3 (04:54→19:00)
[2018-07-08] MEDS: PIPER-TAZO 3.375 GM IV (PMX) 100 ML IVPB SCH ×3 (05:06→17:59)
[2018-07-08] MEDS: DEXTROSE 5%-0.45% NACL 1,000 ML IV SCH ×2 (06:55→08:04)
--- NOTE | 2018-07-08 10:15 | CONS ---
Assessment/Plan Assessment/Plan Assessment/Plan (Daily) 18 yof , abdominal pain , labs imaging consistent with gallstone pancreatitis . LFTs normal now except for elevated Lipase . Unclear etiology for Gastric distension , possible GOO GI plan for ERCP . Once CBD evaluated , consider Lap natividad Consultation Date/Type/Reason Admit Date/Time Jul 07, 2018 at 04:52 Date of Consultation: Jul 08, 2018 Type of Consult General surgery Reason for Consultation Gallstone pancreatitis, possible choledocholithiasis, abdominal pain Requesting Provider: KADEEM LEGGETT Date/Time of Note DATE: 07/08/18 TIME: 10:07 Hx of Present Illness Patient 18-year-old female who was at outside hospital with abdominal pain right upper quadrant pain and diagnosed with a gallstone pancreatitis with elevated lipase and noted cholelithiasis unclear if there was documentation of common bile duct stones. Was transferred to [facility] because of a contract insurance. He is 4 weeks and was first diagnosed with cholelithiasis and at 30 weeks gestation. Patient complains of nausea she was also noted to have possible gastric outlet obstruction with marked distention of the stomach. Past Medical History Medical History: gallstones Home Meds Reported Medications Dyk618/Iron Fumarate/FA/Dss ( 19 Tablet) 1 Each Tablet, 1 EACH PO DAILY, TAB 03/22/18 Medications Current Medications Dextrose/Sodium Chloride 1,000 ml @ 120 mls/hr Q8H20M IV Last administered on 07/08/18at 08:04; Admin Dose 120 MLS/HR; Start 07/07/18 at 05:55 IV Flush (NS 3 ml) 3 ml PER PROTOCOL IV ; Start 07/07/18 at 06:00 Ondansetron HCl (Zofran Inj) 4 mg Q6H PRN IV NAUSEA/VOMITING Last administered on 07/07/18at 18:19; Admin Dose 4 MG; Start 07/07/18 at 06:00 Piperacillin Sod/ Tazobactam Sod 100 ml @ 200 mls/hr Q6 IVPB Last administered on 07/08/18at 05:06; Admin Dose 200 MLS/HR; Start 07/07/18 at 07:00 Morphine Sulfate (morphine) 4 mg Q4H PRN IV .SEVERE PAIN 7-10 Last administered on 07/07/18at 15:50; Admin Dose 4 MG; Start 07/07/18 at 08:30 Ketorolac Tromethamine (Toradol) 30 mg Q6H PRN IV PAIN LEVEL 1-3 Last administered on 07/08/18at 04:54; Admin Dose 30 MG; Start 07/07/18 at 08:30; Stop 07/10/18 at 08:29 Indomethacin (Indocin Supp) 100 mg ONCE ONCE NE ; Start 07/08/18 at 18:00; Stop 07/08/18 at 18:01 Allergies: Coded Allergies: No Known Allergy (Unverified , 05/02/18) Past Surgical History Past Surgical Hx: no surgical history Social History Alcohol Use: none Smoking Status: Never smoker Drug Use: none Exam/Review of Systems Exam Vitals Vital Signs Date Temp Pulse Resp B/P (MAP) Pulse Ox O2 O2 Flow FiO2 Time Delivery Rate 07/08/18 98.9 94 18 121/58 98 Room Air 08:00 (79) Intake and Output 07/07/18 07/07/18 07/08/18 1515:00 23:00 07:00 IntakeIntake Total 100 ml 1000 ml 825 ml OutputOutput Total 1 ml BalanceBalance 100 ml 1000 ml 824 ml Exam A&O x 3 Complaining of mild abdominal pain Lungs clear Cor reg rate rhythm . nl S1S2 , no rubs Abd mild distension , mild tendeerness right upper quadrant Results Result Diagram: 07/08/18 0603 07/08/18 0603 Results 24hrs Laboratory Tests Test 07/08/18 06:03 White Blood Count 19.5 H Red Blood Count 3.82 L Hemoglobin 9.8 L Hematocrit 31.8 L Mean Corpuscular Volume 83.2 Mean Corpuscular Hemoglobin 25.7 L Mean Corpuscular Hemoglobin Concent 30.8 L Red Cell Distribution Width 16.7 H Platelet Count 349 # Mean Platelet Volume 10.4 Immature Granulocytes % 0.500 H Neutrophils % 84.3 H Lymphocytes % 7.1 L Monocytes % 7.9 Eosinophils % 0.1 Basophils % 0.1 Nucleated Red Blood Cells % 0.0 Immature Granulocytes # 0.090 H Neutrophils # 16.5 H Lymphocytes # 1.4 Monocytes # 1.6 H Eosinophils # 0.0 Basophils # 0.0 Nucleated Red Blood Cells # 0.0 Sodium Level 140 Potassium Level 3.1 L Chloride Level 101 Carbon Dioxide Level 28 Anion Gap 11 Blood Urea Nitrogen 7 Creatinine 0.50 Est Glomerular Filtrat Rate mL/min > 60 Glucose Level 100 # Calcium Level 9.1 Phosphorus Level 3.0 Magnesium Level 1.8 Lipase 1582 H Medications Medication Current Medications Dextrose/Sodium Chloride 1,000 ml @ 120 mls/hr Q8H20M IV Last administered on 07/08/18 08:04; Admin Dose 120 MLS/HR; Start 07/07/18 at 05:55 IV Flush (NS 3 ml) 3 ml PER PROTOCOL IV ; Start 07/07/18 at 06:00 Ondansetron HCl (Zofran Inj) 4 mg Q6H PRN IV NAUSEA/VOMITING Last administered on 07/07/18at 18:19; Admin Dose 4 MG; Start 07/07/18 at 06:00 Piperacillin Sod/ Tazobactam Sod 100 ml @ 200 mls/hr Q6 IVPB Last administered on 07/08/18at 05:06; Admin Dose 200 MLS/HR; Start 07/07/18 at 07:00 Morphine Sulfate (morphine) 4 mg Q4H PRN IV .SEVERE PAIN 7-10 Last administered on 07/07/18at 15:50; Admin Dose 4 MG; Start 07/07/18 at 08:30 Ketorolac Tromethamine (Toradol) 30 mg Q6H PRN IV PAIN LEVEL 1-3 Last administered on 07/08/18at 04:54; Admin Dose 30 MG; Start 07/07/18 at 08:30; Stop 07/10/18 at 08:29 Indomethacin (Indocin Supp) 100 mg ONCE ONCE NE ; Start 07/08/18 at 18:00; Stop 07/08/18 at 18:01 SAI BARCENAS MD Jul 08, 2018 10:15
--- NOTE | 2018-07-08 14:22 | PN ---
Date/Time of Note Date/Time of Note DATE: 07/08/18 TIME: 14:18 Assessment/Plan VTE Prophylaxis Risk score (from Nsg)>0 risk: 1 Pharmacological prophylaxis: NA/contraindicated Pharm contraindication: low risk/ambulating Lines/Catheters IV Catheter Type (from Nrsg): Peripheral IV Assessment/Plan Hospital Course 1. Gallstone pancreatitis MRCP shows dilated common bile duct as well as cholelithiasis and distended stomach HIDA scan is negative for cholecystitis Surgery and GI consultations appreciated, plan is for EGD and possible ERCP today Monitor lipase 2. Possible gastric outlet obstruction Follow EGD results Prophylaxis: Ambulation Result Diagram: 07/08/18 0603 07/08/18 0603 Results 24hrs Laboratory Tests Test 07/08/18 06:03 White Blood Count 19.5 H Red Blood Count 3.82 L Hemoglobin 9.8 L Hematocrit 31.8 L Mean Corpuscular Volume 83.2 Mean Corpuscular Hemoglobin 25.7 L Mean Corpuscular Hemoglobin Concent 30.8 L Red Cell Distribution Width 16.7 H Platelet Count 349 # Mean Platelet Volume 10.4 Immature Granulocytes % 0.500 H Neutrophils % 84.3 H Lymphocytes % 7.1 L Monocytes % 7.9 Eosinophils % 0.1 Basophils % 0.1 Nucleated Red Blood Cells % 0.0 Immature Granulocytes # 0.090 H Neutrophils # 16.5 H Lymphocytes # 1.4 Monocytes # 1.6 H Eosinophils # 0.0 Basophils # 0.0 Nucleated Red Blood Cells # 0.0 Sodium Level 140 Potassium Level 3.1 L Chloride Level 101 Carbon Dioxide Level 28 Anion Gap 11 Blood Urea Nitrogen 7 Creatinine 0.50 Est Glomerular Filtrat Rate mL/min > 60 Glucose Level 100 # Calcium Level 9.1 Phosphorus Level 3.0 Magnesium Level 1.8 Lipase 1582 H Subjective 24 Hr Interval Summary Gastrointestinal: pain Exam/Review of Systems Exam Vitals Vital Signs Date Temp Pulse Resp B/P (MAP) Pulse Ox O2 O2 Flow FiO2 Time Delivery Rate 07/08/18 98.9 94 18 121/58 98 Room Air 08:00 (79) Intake and Output 07/07/18 07/07/18 07/08/18 1515:00 23:00 07:00 IntakeIntake Total 100 ml 1000 ml 825 ml OutputOutput Total 1 ml BalanceBalance 100 ml 1000 ml 824 ml Constitutional: alert, oriented Respiratory: clear to auscultation Cardiovascular: regular rate and rhythm Gastrointestinal: soft, tender; No distended Musculoskeletal: nl extremities to inspection Results Results 24hrs Laboratory Tests Test 07/08/18 06:03 White Blood Count 19.5 H Red Blood Count 3.82 L Hemoglobin 9.8 L Hematocrit 31.8 L Mean Corpuscular Volume 83.2 Mean Corpuscular Hemoglobin 25.7 L Mean Corpuscular Hemoglobin Concent 30.8 L Red Cell Distribution Width 16.7 H Platelet Count 349 # Mean Platelet Volume 10.4 Immature Granulocytes % 0.500 H Neutrophils % 84.3 H Lymphocytes % 7.1 L Monocytes % 7.9 Eosinophils % 0.1 Basophils % 0.1 Nucleated Red Blood Cells % 0.0 Immature Granulocytes # 0.090 H Neutrophils # 16.5 H Lymphocytes # 1.4 Monocytes # 1.6 H Eosinophils # 0.0 Basophils # 0.0 Nucleated Red Blood Cells # 0.0 Sodium Level 140 Potassium Level 3.1 L Chloride Level 101 Carbon Dioxide Level 28 Anion Gap 11 Blood Urea Nitrogen 7 Creatinine 0.50 Est Glomerular Filtrat Rate mL/min > 60 Glucose Level 100 # Calcium Level 9.1 Phosphorus Level 3.0 Magnesium Level 1.8 Lipase 1582 H Medications Medication Current Medications Dextrose/Sodium Chloride 1,000 ml @ 120 mls/hr Q8H20M IV Last administered on 07/08/18 08:04; Admin Dose 120 MLS/HR; Start 07/07/18 at 05:55 IV Flush (NS 3 ml) 3 ml PER PROTOCOL IV ; Start 07/07/18 at 06:00 Ondansetron HCl (Zofran Inj) 4 mg Q6H PRN IV NAUSEA/VOMITING Last administered on 07/07/18at 18:19; Admin Dose 4 MG; Start 07/07/18 at 06:00 Piperacillin Sod/ Tazobactam Sod 100 ml @ 200 mls/hr Q6 IVPB Last administered on 07/08/18at 12:24; Admin Dose 200 MLS/HR; Start 07/07/18 at 07:00 Morphine Sulfate (morphine) 4 mg Q4H PRN IV .SEVERE PAIN 7-10 Last administered on 07/07/18at 15:50; Admin Dose 4 MG; Start 07/07/18 at 08:30 Ketorolac Tromethamine (Toradol) 30 mg Q6H PRN IV PAIN LEVEL 1-3 Last administered on 07/08/18at 12:42; Admin Dose 30 MG; Start 07/07/18 at 08:30; Stop 07/10/18 at 08:29 Indomethacin (Indocin Supp) 100 mg ONCE ONCE OK ; Start 07/08/18 at 18:00; St op 07/08/18 at 18:01 KADEEM LEGGETT Jul 08, 2018 14:22
[2018-07-08] MEDS ORDERED: POTASSIUM CHLORIDE 30 MEQ in SOD CHLORIDE 0.9% 1,000 ML IV SCH (14:30)
[2018-07-08] MEDS: POTASSIUM CHLORIDE 100 ML IVPB SCH ×2 (15:27→19:00)
[2018-07-08] MEDS ORDERED: FENTAnyl 50 MCG/ML VIAL IV PRN ×5 (16:30→22:00)
[2018-07-08] MEDS ORDERED: EPHEDrine SULFATE 50 MG/5 ML SYG IV PRN ×2 (16:30→22:00)
[2018-07-08] MEDS ORDERED: METOCLOPRAMIDE 10 MG INJ IV PRN ×2 (16:30→22:00)
[2018-07-08] MEDS ORDERED: ONDANSETRON 4 MG INJ IV PRN ×3 (16:30→23:30)
[2018-07-08] MEDS ORDERED: hydrALAzine 20 MG INJ IV PRN ×2 (16:30→22:00)
[2018-07-08] MEDS ORDERED: LABETALOL HCL 20MG INJ IV PRN ×2 (16:30→22:00)
--- NOTE | 2018-07-08 16:35 | PREAC ---
Date/Time of Note Date/Time of Note DATE: 07/08/18 TIME: 16:30 Anesthesia Eval and Record Evaluation Time Pre-Procedure Interview DATE: 07/08/18 TIME: 16:30 Age 18 Sex female NPO: 8 hrs Preoperative diagnosis Abdominal Pain Planned procedure EGD Past Medical History Past Medical History: Includes Renal: Other (hypokalemia) Heme: Anemia : : (1), Para: (1) Surgery & Anesthesia Issues No known issue Meds Anticoagulation: No Beta Miranda within 24 hr: No Reason Beta Miranda not given: Pt. not on B-Miranda Reported Medications Xie180/Iron Fumarate/FA/Dss ( 19 Tablet) 1 Each Tablet, 1 EACH PO DAILY, TAB 03/22/18 Current Medications IV Flush (NS 3 ml) 3 ml PER PROTOCOL IV ; Start 07/07/18 at 06:00 Ondansetron HCl (Zofran Inj) 4 mg Q6H PRN IV NAUSEA/VOMITING Last administered on 07/07/18at 18:19; Admin Dose 4 MG; Start 07/07/18 at 06:00 Piperacillin Sod/ Tazobactam Sod 100 ml @ 200 mls/hr Q6 IVPB Last administered on 07/08/18at 12:24; Admin Dose 200 MLS/HR; Start 07/07/18 at 07:00 Morphine Sulfate (morphine) 4 mg Q4H PRN IV .SEVERE PAIN 7-10 Last administered on 07/07/18at 15:50; Admin Dose 4 MG; Start 07/07/18 at 08:30 Ketorolac Tromethamine (Toradol) 30 mg Q6H PRN IV PAIN LEVEL 1-3 Last administered on 07/08/18at 12:42; Admin Dose 30 MG; Start 07/07/18 at 08:30; Stop 07/10/18 at 08:29 Indomethacin (Indocin Supp) 100 mg ONCE ONCE [place] ; Start 07/08/18 at 18:00; Stop 07/08/18 at 18:01 Potassium Chloride 100 ml @ 50 mls/hr Q2H IVPB Last administered on 07/08/18at 15:27; Admin Dose 50 MLS/HR; Start 07/08/18 at 14:30; Stop 07/08/18 at 18:29 Potassium Chloride 30 meq/ Sodium Chloride 1,015 ml @ 100 mls/hr Q10H9M IV Last administered on 07/08/18at 15:27; Admin Dose 100 MLS/HR; Start 07/08/18 at 14:30 Meds reviewed: Yes Allergies Coded Allergies: No Known Allergy (Unverified , 05/02/18) Allergies Reviewed: Yes Labs/Studies Labs Reviewed: Reviewed by anesthesiologist Result Diagram: 07/08/18 0603 07/08/18 0603 Laboratory Tests 07/08/18 06:03 test: N/A ( 4 wks ) Studies: ECG (n/a), CXR (n/a) Pre-procedure Exam Last vitals Vital Signs Date Temp Pulse Resp B/P (MAP) Pulse Ox O2 O2 Flow FiO2 Time Delivery Rate 07/08/18 98.9 94 18 121/58 98 Room Air 08:00 (79) Airway: Adequate mouth opening, Adequate thyromental dist Mallampati: Mallampati II Teeth: Normal Lung: Normal Heart: Normal ASA Physical Status ASA physical status: 1 Emergency: None Planned Anesthetic General/MAC: MAC Planned Pain Management Parenteral pain med Pre-operative Attestations Prior to commencing anesthesia and surgery, the patient was re-evaluated, there was verification of: *The patient's identity *The results of appropriate recent lab work and preoperative vital signs *The above evaluation not changing prior to induction *Anesthetic plan, risk benefits, alternative and complications discussed with patient/family; questions answered; patient/family understands, accepts and wishes to proceed. RADHA CHUNG MD Jul 08, 2018 16:35
[2018-07-08] MEDS ORDERED: PROPOFOL 40 ML ONE (16:48)
--- NOTE | 2018-07-08 16:49 | PAC ---
Date/Time of Note Date/Time of Note DATE: 07/08/18 TIME: 16:49 Post-Anesthesia Notes Post-Anesthesia Note Last documented vital signs Vital Signs Date Temp Pulse Resp B/P (MAP) Pulse Ox O2 O2 Flow FiO2 Time Delivery Rate 07/08/18 98.9 94 18 121/58 98 Room Air 16:50 (79) Activity: WNL Respiratory function: WNL Cardiovascular function: WNL Mental status: Baseline Pain reasonably controlled: Yes Hydration appropriate: Yes Nausea/Vomiting absent: Yes RADHA CUHNG MD Jul 08, 2018 16:49
[2018-07-08] MEDS: PANTOPRAZOLE 40 MG INJ IV SCH (17:59)
[2018-07-08] MEDS ORDERED: INDOMETHACIN 50 MG SUPP PR ONE (18:00)
--- NOTE | 2018-07-08 21:06 | PREAC ---
Date/Time of Note Date/Time of Note DATE: 07/08/18 TIME: 21:04 Anesthesia Eval and Record Evaluation Time Pre-Procedure Interview DATE: 07/08/18 TIME: 21:04 Age 18 Sex female NPO: 8 hrs Preoperative diagnosis Cholelithiasis Planned procedure Laparoscopic Cholecystectomy Past Medical History Past Medical History: Includes Endo: Other (Hypokalemia) Heme: Anemia : : (1), Para: (1), Other (post 4 weeks) Surgery & Anesthesia Issues No known issue Meds Anticoagulation: No Beta Miranda within 24 hr: No Reason Beta Miranda not given: Pt. not on B-Miranda Reported Medications Qdu111/Iron Fumarate/FA/Dss ( 19 Tablet) 1 Each Tablet, 1 EACH PO DAILY, TAB 03/22/18 Current Medications IV Flush (NS 3 ml) 3 ml PER PROTOCOL IV ; Start 07/07/18 at 06:00 Ondansetron HCl (Zofran Inj) 4 mg Q6H PRN IV NAUSEA/VOMITING Last administered on 07/07/18 18:19; Admin Dose 4 MG; Start 07/07/18 at 06:00 Piperacillin Sod/ Tazobactam Sod 100 ml @ 200 mls/hr Q6 IVPB Last administered on 07/08/18 17:59; Admin Dose 200 MLS/HR; Start 07/07/18 at 07:00 Morphine Sulfate (morphine) 4 mg Q4H PRN IV .SEVERE PAIN 7-10 Last administered on 07/07/18at 15:50; Admin Dose 4 MG; Start 07/07/18 at 08:30 Ketorolac Tromethamine (Toradol) 30 mg Q6H PRN IV PAIN LEVEL 1-3 Last administered on 07/08/18at 19:00; Admin Dose 30 MG; Start 07/07/18 at 08:30; Stop 07/10/18 at 08:29 Potassium Chloride 30 meq/ Sodium Chloride 1,015 ml @ 100 mls/hr Q10H9M IV Last administered on 07/08/18at 15:27; Admin Dose 100 MLS/HR; Start 07/08/18 at 14:30 Pantoprazole (Protonix Iv) 40 mg BID@06,18 IV Last administered on 07/08/18at 17:59; Admin Dose 40 MG; Start 07/08/18 at 18:00 Meds reviewed: Yes Allergies Coded Allergies: No Known Allergy (Unverified , 05/02/18) Allergies Reviewed: Yes Labs/Studies Labs Reviewed: Reviewed by anesthesiologist Result Diagram: 07/08/18 0603 07/08/18 0603 Laboratory Tests 07/08/18 06:03 test: Negative Studies: ECG (n/a), CXR (n/a) Pre-procedure Exam Last vitals Vital Signs Date Temp Pulse Resp B/P (MAP) Pulse Ox O2 O2 Flow FiO2 Time Delivery Rate 07/08/18 94 20 138/78 98 Room Air 17:20 (98) 07/08/18 98.8 16:54 Airway: Adequate mouth opening, Adequate thyromental dist Mallampati: Mallampati II Teeth: Normal Lung: Normal Heart: Normal ASA Physical Status ASA physical status: 2 Emergency: None Planned Anesthetic General/MAC: ETT Nerve block: TAP (bilateral) Planned Pain Management Single shot nerve block, Parenteral pain med Pre-operative Attestations Prior to commencing anesthesia and surgery, the patient was re-evaluated, there was verification of: *The patient's identity *The results of appropriate recent lab work and preoperative vital signs *The above evaluation not changing prior to induction *Anesthetic plan, risk benefits, alternative and complications discussed with patient/family; questions answered; patient/family understands, accepts and wishes to proceed. RADHA CHUNG MD Jul 08, 2018 21:06
[2018-07-08] MEDS ORDERED: ROPIVACAINE 0.5 % 30 ML VIAL ONE (21:08)
[2018-07-08] MEDS ORDERED: FENTAnyl 50 MCG/ML VIAL ONE ×2 (21:08→21:53)
[2018-07-08] MEDS ORDERED: ROCURONIUM 50 MG INJ ONE (21:08)
[2018-07-08] MEDS ORDERED: MIDAZOLAM 1 MG/ML 2 ML INJ ONE (21:08)
[2018-07-08] MEDS ORDERED: PROPOFOL 20 ML ONE (21:08)
[2018-07-08] MEDS ORDERED: BUPIVACAINE 0.5%/EPI (SDV) 30 ML INJ ONE (21:10)
[2018-07-08] MEDS ORDERED: LIDOCAINE 2% (MDV) 20 ML INJ ONE (21:10)
[2018-07-08] MEDS ORDERED: CEFAZOLIN 1 GM INJ ONE (22:00)
[2018-07-08] MEDS ORDERED: DIPHENHYDRAMINE 50 MG INJ IV PRN (22:00)
[2018-07-08] MEDS ORDERED: MEPERIDINE 25 MG INJ IV PRN (22:00)
[2018-07-08] MEDS ORDERED: METOCLOPRAMIDE 10 MG INJ ONE (22:00)
[2018-07-08] MEDS ORDERED: DEXAMETHASONE 4 MG/ML 5 ML INJ ONE (22:00)
[2018-07-08] MEDS ORDERED: HYDROmorphONE 1 MG/5 ML IV SYRINGE IV PRN ×3 (22:00)
[2018-07-08] MEDS ORDERED: KETOROLAC 30 MG INJ ONE (22:00)
[2018-07-08] MEDS ORDERED: ONDANSETRON 4 MG INJ ONE (22:00)
[2018-07-08] MEDS ORDERED: NEOSTIGMINE 3 MG/3 ML SYRINGE ONE ×2 (22:36)
[2018-07-08] MEDS ORDERED: GLYCOPYRROLATE 0.4 MG INJ ONE (22:36)
--- NOTE | 2018-07-08 23:02 | PAC ---
Date/Time of Note Date/Time of Note DATE: 07/08/18 TIME: 23:02 Post-Anesthesia Notes Post-Anesthesia Note Last documented vital signs Vital Signs Date Temp Pulse Resp B/P (MAP) Pulse Ox O2 O2 Flow FiO2 Time Delivery Rate 07/08/18 98.1 99 19 119/63 99 face mask 8 liter 23:08 (81) 07/08/18 Room Air 17:20 Activity: WNL Respiratory function: WNL Cardiovascular function: WNL Mental status: Baseline Pain reasonably controlled: Yes Hydration appropriate: Yes Nausea/Vomiting absent: Yes RADHA CHUNG MD Jul 08, 2018 23:02
--- NOTE | 2018-07-08 23:13 | OPR ---
Date/Time of Note Date/Time of Note DATE: 07/08/18 TIME: 23:06 Operative Report Free Text/Dictation Operative report Procedure Date: Jul 08, 2018 Preoperative Diagnosis Cholecystitis cholelithiasis gallstone pancreatitis Postoperative Diagnosis Same Operation/Procedure Performed Laparoscopic cholecystectomy Surgeon Sai Murcia MD see signature line Hydrologic Modeler None Anesthesia Type: general Anesthesiologist: RADHA CHUNG MD Estimated Blood Loss: 0 - 10 ml's Transfusion none Specimen Gallbladder and content Grafts/Implants none Tubes/Drains None Complications none Pt Condition Post Procedure: stable Disposition: PACU Indications Patient presented with abdominal pain elevated lipase consistent with gallstone pancreatitis. Patient also was noted to have some duodenitis and gastritis on endoscopy patient seen by general surgery I recommended that she undergo a laparoscopic cholecystectomy risk benefits alternatives were discussed including postoperative expectations. Procedure Description Patient brought to the operating placed supine position general she is a dministered with ventricular ablation patient prepped draped in standard sterile fashion orogastric tube inserted by anesthesia a tap block was performed by anesthesia. Timeout was completed. Varies needle was placed in left upper quadrant Bahena's point insufflation delivered to maintain pneumoperitoneum 50 was mercury throughout the procedure. Small stab incision was made just above the umbilicus and a 5 mm trocar was inserted under direct visualization with a 30 degree 5 mm laparoscope the varies needle was removed after being sure there was no injury or bleeding. An epigastric 11 mm trocar was inserted and 2 right-sided 5 mm trochars were inserted next self-retaining Wilbert arm was placed in the right posterior right side of the operating table patient was placed in reverse Trendelenburg . A atraumatic grasper was used to grasp the fundus of the gallbladder and lifted up over the edge of the right lobe of the liver. Second grasper on the neck of the gallbladder by Bazzi's pouch combination of suction irrigation and hook cautery and [place] dissector were used to carefully maintain a critical view and score the peritoneum along the neck of the gallbladder the cystic artery was identified versus a posterior tract along the gallbladder was skeletonized doubly clipped on the patient's eye when the gallbladder side and then divided in similar fashion the cystic duct was identified was quite dilated from passage of gallstones presumably. A single clip was placed on the gallbladder side and then a and one had distal on the proximal side and the cystic was cut partially to allow removal of the stones that had passed into the cystic duct. After this was done to allowed application of 2 additional clips proximal distal side and the duct was completely divided. Hook cautery was then used to score the peritoneum the gallbladder was taken off the liver bed small bleeders along the gallbladder fossa were controlled with monopolar cautery and clips and one clip. Gallbladder was taken off the liver bed without spillage of bile a specimen retrieval bag was placed in the epigastric port and the gallbladder placed in this and then brought out through the wound after it was stretched to accommodate delivery. Trocar was then reinserted patient for hemostasis showed good hemostasis the operative field was irrigated aspirated to clear the pneumoperitoneum was allowed to escape after insufflation halted and the trochars were removed under direct visualization. The skin incisions were closed with 4-0 Monocryl and Dermabond for dressing. She was explained the operative brought recovery in stable condition sponge needle count correct x2 SAI MURCIA MD Jul 08, 2018 23:13
[2018-07-08] MEDS ORDERED: ACETAMINOPHEN 325 MG TAB PO PRN (23:30)
[2018-07-08] MEDS ORDERED: OXYCODONE/ACETAMINOPHEN (5/325) TAB PO PRN (23:30)
[2018-07-08] MEDS ORDERED: HYDROmorphONE 0.5 MG/0.5 ML SYG IV PRN (23:30)
[2018-07-09] VITALS (8 sets, daily range): BP systolic 110–138; BP diastolic 60–89; PULSE 17–99; RESP 16–19
[2018-07-09] MEDS: PIPER-TAZO 3.375 GM IV (PMX) 100 ML IVPB SCH ×4 (00:15→17:21)
[2018-07-09] MEDS: D5W-0.45 NACL + KCL 20 MEQ 1,000 ML IV SCH ×3 (00:16→17:21)
[2018-07-09] MEDS: PANTOPRAZOLE 40 MG INJ IV SCH ×2 (05:16→17:21)
[2018-07-09] MEDS ORDERED: FAMOTIDINE 20 MG INJ IV SCH (09:00)
--- NOTE | 2018-07-09 12:10 | PDOCDIS ---
Discharge Instructions CONDITION [id number] Patient Condition: [id number] Good HOME CARE INSTRUCTIONS: [id number] Diet Instructions: [id number] Reduced Calorie ACTIVITY: [id number] Activity Restrictions: [id number] No Restrictions Avoid heavy lifting (x 4 weeks ) FOLLOW UP/APPOINTMENTS Follow-up Plan Follow-up with of GI in clinic, follow-up with Dr. Abimael Murcia of surgery 2-3 weeks, follow-up with your PCP in 1-2 weeks KADEEM LEGGETT Jul 09, 2018 12:10
--- NOTE | 2018-07-09 12:16 | DS ---
Date/Time of Note Date/Time of Note DATE: 07/09/18 TIME: 12:10 Discharge Summary Admission/Discharge Info Admit Date/Time Jul 07, 2018 at 04:52 Discharge Date/Time July 09, 2018 Discharge Diagnosis 1. Gallstone pancreatitis MRCP shows dilated common bile duct as well as cholelithiasis and distended stomach HIDA scan is negative for cholecystitis Surgery and GI consultations appreciated EGD showed gastritis, ERCP not indicated per GI Patient is status post laparoscopic cholecystectomy Patient Condition: Good Hospital Course Patient is a 18-year-old female with no past medical history except for recent and delivery. Patient presents with epigastric pain radiating to the back and was found to have gallstone pancreatitis. MRCP was done and showed dilated common bile duct as well as cholelithiasis and distended stomach, HIDA was negative for cholecystitis. Patient was seen by GI and surgery, EGD showed gastritis, ERCP was not done. Patient had a laparoscopic cholecystectomy was stable for DC. On day of discharge patient's vitals, labs and physical exam are stable, patient had no further abdominal pain and was clear for DC per GI and surgery. Home Meds Reported Medications Uya352/Iron Fumarate/FA/Dss ( 19 Tablet) 1 Each Tablet, 1 EACH PO DAILY, TAB 03/22/18 Follow-up Plan Follow-up with of GI in clinic, follow-up with Dr. Abimael Murcia of surgery 2-3 weeks, follow-up with your PCP in 1-2 weeks Primary Care Provider Not On Staff Doctor Time spent on discharge: > 30 minutes KADEEM LEGGETT Jul 09, 2018 12:16
== END 2018-07-09 18:27 | disposition home or self-care (01) | DRG 769 ==
LOC: 5EC 04:52
PROVIDERS: ADMIT Internal Medicine; ATTEND Internal Medicine
PROC: 0DB68ZX Excision of Stomach, Via Natural or Artificial Opening Endoscopic, Diagnostic (ICD-10-PCS; 2018-07-08)
PROC: 0FT44ZZ Resection of Gallbladder, Percutaneous Endoscopic Approach (ICD-10-PCS; principal; 2018-07-08 20:00)
DX: O99.63 Diseases of the digestive system complicating the puerperium (principal); K85.10 Biliary acute pancreatitis without necrosis or infection; K80.10 Calculus of gallbladder with chronic cholecystitis without obstruction; K20.9 Esophagitis, unspecified; K29.70 Gastritis, unspecified, without bleeding; K29.60 Other gastritis without bleeding
CPT/HCPCS: 74181; 78226; 80048; 80053; 83690; 83735; 84100; 85025; 88304; 88305; 88312; A9537; C9113; J0690; J1100; J1885; J2250; J2270; J2405; J2543; J2710; J2765; J2795; J3010; J3480; J7030; J7042

== ENCOUNTER 2018-08-01 17:43 | Inpatient (IN) | payer BC ==
[~2018-08-01] VITALS: Ht 154.9 cm; Wt 65.9 kg
[2018-08-01 20:45] VITALS: BP 114/59; RESP 18
[2018-08-01 20:47] VITALS: PULSE 106
[2018-08-01 22:02] VITALS: Ht 154.9 cm; Wt 65.9 kg
[2018-08-01] MEDS ORDERED: NACL 0.9% 3 ML SYG IV SCH (22:30)
[2018-08-01] MEDS ORDERED: HYDROmorphONE 0.5 MG/0.5 ML SYG IV PRN (22:30)
[2018-08-01] MEDS ORDERED: HYDROmorphONE 1 MG/ML SYG IV ONE (22:30)
[2018-08-01] MEDS ORDERED: ACETAMINOPHEN 325 MG TAB PO PRN (22:30)
[2018-08-01] MEDS: SOD CHLORIDE 0.9% 1,000 ML IV SCH (22:41)
--- NOTE | 2018-08-01 23:08 | HP ---
Date/Time of Note Date/Time of Note DATE: 08/01/18 TIME: 23:08 Assessment/Plan VTE Prophylaxis SCD applied (from Nsg): Yes Pharmacological prophylaxis: NA/contraindicated Pharm contraindication: low risk/ambulating Assessment/Plan Hospital Course This is a 18-year-old female being admitted to the [facility] floor for: #1 #1 right upper quadrant abdominal pain: Patient had elevation in her liver function tests with ALT of 78 AST of 169 and alk phos of 174 her ultrasound of the abdomen showed a dilated common bile duct without visualized filling defect measuring 12.8 mm without intrahepatic biliary dilatation may be secondary to postcholecystectomy state. Recommendation was to obtain an MRCP which has been ordered. Zofran for nausea. N.p.o. except meds. Will consult GI. #2 History of gallstone pancreatitis: Patient is status post cholecystectomy on 07/08/2018. #3 DVT and GI prophylaxis: SCDs, no GI prophylaxis indicated Further strategy will be implemented as per clinical course Result Diagram: 08/01/18 2241 Results 24hrs Laboratory Tests Test 08/01/18 22:41 White Blood Count 11.8 #H Red Blood Count 3.93 L Hemoglobin 10.1 L Hematocrit 33.4 L Mean Corpuscular Volume 85.0 Mean Corpuscular Hemoglobin 25.7 L Mean Corpuscular Hemoglobin Concent 30.2 L Red Cell Distribution Width 15.2 H Platelet Count 295 Mean Platelet Volume 10.7 H Immature Granulocytes % 0.500 H Neutrophils % 87.2 H Lymphocytes % 6.9 L Monocytes % 5.0 Eosinophils % 0.1 Basophils % 0.3 Nucleated Red Blood Cells % 0.0 Immature Granulocytes # 0.060 H Neutrophils # 10.3 H Lymphocytes # 0.8 Monocytes # 0.6 Eosinophils # 0.0 Basophils # 0.0 Nucleated Red Blood Cells # 0.0 Prothrombin Time 14.5 Prothrombin Time Ratio 1.1 INR International Normalized Ratio 1.12 Activated Partial Thromboplast Time 29.2 HPI/ROS Admit Date/Time Admit Date/Time Aug 01, 2018 at 20:30 Hx of Present Illness Chief complaint: Right upper quadrant pain. This is a 18-year-old female with a past medical history of gallstone finger otitis status post cholecystectomy within the last month who presented to [facility] complaining of right upper quadrant pain. Patient reported that her pain started yesterday around 7 PM. She reported that she had nausea and vomiting.. She denies any fevers. Denies any chest pain. She is currently breast-feeding Pertinent laboratory findings from the transferring facility showed: White blood cells 10.1 ALT 78/AST 169/alk phos 174 Ultrasound of the right upper quadrant showed: Dilated common bile duct without visualized filling defect measuring 12.8 mm without intrahepatic biliary dilatation may be secondary to postcholecystectomy state. Recommend MRCP. Allergies: NKDA Medications: None ROS Const: As per HPI Eyes : No pain discharge or redness or change in visual acuity ENT: No pain, sore throat, congestion, congestion, dysphagia or discharge Respiratory: No shortness of breath, cough, sputum, wheezing, or pleuritic pain Cardiovascular: No chest pain, palpitation, PND, or edema GI : As per HPI Genitourinary: No dysuria, hematuria, flank pain , discharge or CVA tenderness Musculoskeletal: No joint pain, back pain, neck pain, restricted range of motion in neck or joints Skin: No rash, bruising or hives Neuro: No headache, dizziness, syncope, seizure, focal weakness Endocrine: No polyuria, polydipsia, temperature intolerance Psych: No hallucination, depression, anxiety or suicidal ideation PMH/Family/Social Past Medical History Gallstone pancreatitis Medications Current Medications Sodium Chloride 1,000 ml @ 100 mls/hr Q10H IV Last administered on 08/01/18at 22:41; Admin Dose 100 MLS/HR; Start 08/01/18 at 22:22 IV Flush (NS 3 ml) 3 ml PER PROTOCOL IV ; Start 08/01/18 at 22:30 Acetaminophen (Tylenol Tab) 650 mg Q6H PRN PO .PAIN 1-3 OR TEMP; Start 08/01/18 at 22:30 Hydromorphone HCl (Dilaudid) 0.5 mg Q4H PRN IV .SEVERE PAIN 7-10; Start 08/01/18 at 22:30 Coded Allergies: No Known Allergy (Unverified , 05/02/18) Past Surgical History Past Surgical Hx: cholecystectomy Family History Significant Family History: no pertinent family hx Social History Alcohol Use: none Smoking Status: Never smoker Drug Use: none Exam/Review of Systems Exam Exam General: Patient is currently complaining on pain HEENT: Atraumatic, normocephalic. The pupils are equal, round and reactive. Extraocular motor are intact Neck: Supple with full range of motion. No rigidity or meningismus Chest: Nontender Lungs: Clear to auscultation bilaterally no crackles rales or wheezing Heart: Normal S1-S2, Regular rhythm and rate. No murmur, S3, or S4 Abdomen: Soft , mild right upper quadrant tenderness palpation, nondistended, normal bowel sounds Extremities: Normal to inspection, no edema no cyanosis Neurologic: Normal mental status, speech normal, cranial nerves II through XII are intact, motor and sensory are intact, no focal weakness JUAN GAN Aug 01, 2018 23:08
[2018-08-01] MEDS ORDERED: MAGNESIUM SULFATE 2 GM/50 ML 50 ML IVPB ONE (23:30)
[2018-08-01] MEDS ORDERED: METOCLOPRAMIDE 10 MG INJ IV PRN (23:30)
[2018-08-01] MEDS: ONDANSETRON 4 MG INJ IV PRN (23:35)
[2018-08-02 02:20] VITALS: BP 118/66; RESP 18
[2018-08-02 02:21] VITALS: PULSE 112
[2018-08-02] MEDS ORDERED: KETOROLAC 15 MG INJ IV PRN (04:00)
[2018-08-02] MEDS ORDERED: morphine 2 MG INJ IV PRN (04:00)
[2018-08-02 05:50] VITALS: BP 125/76; PULSE 127
[2018-08-02] MEDS: PIPER-TAZO 3.375 GM IV (PMX) 100 ML IVPB SCH ×4 (06:35→23:32)
[2018-08-02 08:07] VITALS: BP 121/69; PULSE 111; RESP 17
[2018-08-02] MEDS ORDERED: IBUPROFEN 200 MG TAB PO ONE (10:00)
--- NOTE | 2018-08-02 10:11 | CONS ---
Assessment/Plan Assessment/Plan Assessment/Plan (Daily) Assessment: Upper abdominal pain Nausea/vomiting Dilated common bile duct -12.8 cm Transaminitis Leukocytosis Fever Chronic constipation Recent childbirth 05/2018 Status post cholecystectomy 07/08/18 Plan: MRCP ordered Further recommendations will depend on the results of MRCP Monitor LFTs Continue clear liquid diet Start Amitiza twice daily Patient seen in collaboration with Dr. Tavares Consultation Date/Type/Reason Admit Date/Time Aug 01, 2018 at 20:30 Date of Consultation: Aug 02, 2018 Type of Consult GI Reason for Consultation Dilated common bile duct/abdominal pain Date/Time of Note DATE: 08/02/18 TIME: 10:03 Hx of Present Illness This is a 18-year-old female who has recently gave in May and undergone cholecystectomy in June is now being transferred from [facility] for 2-day history of right upper quadrant abdominal pain, nausea and vomiting. Patient developed her symptoms 2 days ago with multiple episodes of nonbloody vomiting nausea and upper abdominal pain radiating to the back. Patient developed fever. Abdominal ultrasound dilated common bile duct of 12.8 cm. Elevated liver function test noted. Bilirubin and lipase within normal. Leukocytosis present. Currently patient denies vomiting, hematemesis, hematoc hezia, or diarrhea. Patient denies any past medical history. She is currently breast-feeding. She is complaining of chronic constipation -will start on Amitiza twice daily. MRCP has been ordered to rule out choledocholithiasis. We will continue close observation. Gastrointestinal: no complaints (See HPI) Past Medical History Chronic constipation Home Meds Reported Medications Qap087/Iron Fumarate/FA/Dss ( 19 Tablet) 1 Each Tablet, 1 EACH PO DAILY, TAB 03/22/18 Medications Current Medications Sodium Chloride 1,000 ml @ 100 mls/hr Q10H IV Last administered on 08/01/18at 22:41; Admin Dose 100 MLS/HR; Start 08/01/18 at 22:22 IV Flush (NS 3 ml) 3 ml PER PROTOCOL IV ; Start 08/01/18 at 22:30 Acetaminophen (Tylenol Tab) 650 mg Q6H PRN PO .PAIN 1-3 OR TEMP Last administered on 08/02/18at 05:43; Admin Dose 650 MG; Start 08/01/18 at 22:30 Ondansetron HCl (Zofran Inj) 4 mg Q4H PRN IV NAUSEA AND/OR VOMITING Last administered on 08/01/18at 23:35; Admin Dose 4 MG; Start 08/01/18 at 23:30 Metoclopramide HCl (Reglan) 10 mg Q6H PRN IV NAUSEA; Start 08/01/18 at 23:30 Influenza Virus Vaccine Quadrival (Fluzone) 0.5 ml ONCE ONCE IM* ; Start 08/04/18 at 10:00; Stop 08/04/18 at 10:01 Morphine Sulfate (morphine) 2 mg Q4H PRN IV SEVERE PAIN LEVEL 7-10; Start 08/02/18 at 04:00 Ketorolac Tromethamine (Toradol) 15 mg Q6H PRN IV PAIN; Start 08/02/18 at 04:00; Stop 08/05/18 at 03:59 Piperacillin Sod/ Tazobactam Sod 100 ml @ 200 mls/hr Q6 IVPB Last administered on 08/02/18at 06:35; Admin Dose 200 MLS/HR; Start 08/02/18 at 06:00 Ibuprofen (Motrin) 400 mg ONCE ONCE PO ; Start 08/02/18 at 10:00; Stop 08/02/18 at 10:01; Status UNV Lubiprostone (Amitiza) 24 mcg BID PO ; Start 08/02/18 at 10:00; Status UNV Allergies: Coded Allergies: No Known Allergy (Unverified , 05/02/18) Past Surgical History Past Surgical Hx: cholecystectomy Social History Alcohol Use: none Smoking Status: Never smoker Drug Use: none Exam/Review of Systems Exam Vitals Vital Signs Date Temp Pulse Resp B/P (MAP) Pulse Ox O2 O2 Flow FiO2 Time Delivery Rate 08/02/18 99.6 111 17 121/69 100 Room Air 08:07 (86) Intake and Output 08/01/18 08/01/18 08/02/18 1515:00 23:00 07:00 IntakeIntake Total 1050 ml BalanceBalance 1050 ml Exam PHYSICAL EXAMINATION: GENERAL: Well developed, well nourished, alert & oriented x 3, in no acute distress SKIN: No lesions, no stigmata chronic liver disease, no evidence of bleeding diathesis LYMPHATIC: No palpable lymphadenopathy. HEAD: Normocephalic, atraumatic, no tenderness. EYES: Pupils equal reactive to light and accommodation, full extraocular movements, sclera clear, non-icteric, no discharge. EARS/NOSE AND THROAT: Ears normal, nose normal, oropharynx normal, oral membranes well hydrated without lesions. NECK: Supple, no masses, thyroid normal, JVP within normal limits, carotids normal without bruits. CHEST: Inspection within normal limits. CARDIOVASCULAR: Heart: Regular rate and rhythm, no murmurs, gallops or rubs. Peripheral pulses present within normal limits, no cyanosis, clubbing or edemas. No pulsatile abdominal mass RESPIRATORY: Lungs clear to auscultation and percussion, no wheezing, no rubs GASTROINTESTINAL AND LIVER: Abdomen: Soft, upper abdominal tenderness, non-distended, no hernias, no masses, no organomegaly, no ascites, no guarding, no rebound tenderness, normoactive bowel sounds. Rectal: Deferred. GENITOURINARY: Female genitalia within normal limits. EXTREMITIES: No cyanosis, clubbing or edema. Results Result Diagram: 08/02/18 0558 08/02/18 0558 Results 24hrs Laboratory Tests Test 08/01/18 22:34 08/01/18 22:41 08/02/18 05:58 08/02/18 06:22 Lipase 32 Serum HCG, NEGATIVE Qualitative White Blood Count 11.8 #H 15.5 #H Red Blood Count 3.93 L 4.02 L Hemoglobin 10.1 L 10.3 L Hematocrit 33.4 L 33.9 L Mean Corpuscular 85.0 84.3 Volume Mean Corpuscular 25.7 L 25.6 L Hemoglobin Mean Corpuscular 30.2 L 30.4 L Hemoglobin Concent Red Cell 15.2 H 15.4 H Distribution Width Platelet Count 295 295 Mean Platelet Volume 10.7 H 11.2 H Immature 0.500 H 0.600 H Granulocytes % Neutrophils % 87.2 H 89.2 H Lymphocytes % 6.9 L 3.9 L Monocytes % 5.0 6.1 Eosinophils % 0.1 0.0 Basophils % 0.3 0.2 Nucleated Red Blood 0.0 0.0 Cells % Immature 0.060 H 0.100 H Granulocytes # Neutrophils # 10.3 H 13.8 H Lymphocytes # 0.8 0.6 L Monocytes # 0.6 1.0 H Eosinophils # 0.0 0.0 Basophils # 0.0 0.0 Nucleated Red Blood 0.0 0.0 Cells # Prothrombin Time 14.5 Prothrombin Time 1.1 Ratio INR International 1.12 Normalized Ratio Activated 29.2 Partial Thromboplast Time Sodium Level 141 143 Potassium Level 3.9 4.0 Chloride Level 105 102 Carbon Dioxide Level 25 27 Anion Gap 11 14 H Blood Urea Nitrogen 11 11 Creatinine 0.42 L 0.50 Est Glomerular > 60 > 60 Filtrat Rate mL/min Glucose Level 98 120 Calcium Level 9.4 9.6 Magnesium Level 1.6 L Total Bilirubin 0.5 0.7 Direct Bilirubin 0.00 0.00 Indirect Bilirubin 0.5 0.7 Aspartate Amino 221 H 378 H Transf (AST/SGOT) Alanine 112 H 217 H Aminotransferase (AL T/SGPT) Alkaline Phosphatase 201 H 262 H Total Protein 7.4 8.0 Albumin 4.2 4.4 Globulin 3.20 3.60 H Albumin/Globulin 1.31 1.22 Ratio Triglycerides Level 45 Cholesterol Level 134 LDL Cholesterol, 49 Calculated HDL Cholesterol 76 Cholesterol/HDL 1.7 Ratio Thyroid Stimulating 0.533 Hormone (TSH) Urine Color YELLOW Urine Clarity TURBID A Urine pH 5.0 Urine Specific 1.032 H Lucile Urine Ketones 2+ H Urine Nitrite NEGATIVE Urine Bilirubin 1+ H Urine Urobilinogen 2+ H Urine Leukocyte TRACE A Esterase Urine Microscopic 0 RBC Urine Microscopic 11 H WBC Urine Squamous FEW Epithelial Cells Urine Bacteria MANY A Urine Mucus FEW A Urine Hemoglobin NEGATIVE Urine Glucose NEGATIVE Urine Total Protein 1+ H Medications Medication Current Medications Sodium Chloride 1,000 ml @ 100 mls/hr Q10H IV Last administered on 08/01/18at 22:41; Admin Dose 100 MLS/HR; Start 08/01/18 at 22:22 IV Flush (NS 3 ml) 3 ml PER PROTOCOL IV ; Start 08/01/18 at 22:30 Acetaminophen (Tylenol Tab) 650 mg Q6H PRN PO .PAIN 1-3 OR TEMP Last administered on 08/02/18at 05:43; Admin Dose 650 MG; Start 08/01/18 at 22:30 Ondansetron HCl (Zofran Inj) 4 mg Q4H PRN IV NAUSEA AND/OR VOMITING Last administered on 08/01/18at 23:35; Admin Dose 4 MG; Start 08/01/18 at 23:30 Metoclopramide HCl (Reglan) 10 mg Q6H PRN IV NAUSEA; Start 08/01/18 at 23:30 Influenza Virus Vaccine Quadrival (Fluzone) 0.5 ml ONCE ONCE IM* ; Start 08/04/18 at 10:00; Stop 08/04/18 at 10:01 Morphine Sulfate (morphine) 2 mg Q4H PRN IV SEVERE PAIN LEVEL 7-10; Start 08/02/18 at 04:00 Ketorolac Tromethamine (Toradol) 15 mg Q6H PRN IV PAIN; Start 08/02/18 at 04:00; Stop 08/05/18 at 03:59 Piperacillin Sod/ Tazobactam Sod 100 ml @ 200 mls/hr Q6 IVPB Last administered on 08/02/18at 06:35; Admin Dose 200 MLS/HR; Start 08/02/18 at 06:00 Ibuprofen (Motrin) 400 mg ONCE ONCE PO ; Start 08/02/18 at 10:00; Stop 08/02/18 at 10:01; Status UNV Lubiprostone (Amitiza) 24 mcg BID PO ; Start 08/02/18 at 10:00; Status UNV MECHELLE SCHAEFER NP Aug 02, 2018 10:11
[2018-08-02] MEDS: SOD CHLORIDE 0.9% 1,000 ML IV SCH ×2 (10:54→17:53)
[2018-08-02] MEDS: LUBIPROSTONE 24 MCG CAP PO SCH ×2 (10:56→21:41)
[2018-08-02] MEDS: RANITIDINE 150 MG TAB PO SCH ×2 (10:56→21:41)
[2018-08-02] MEDS: ONDANSETRON 4 MG INJ IV PRN (13:02)
[2018-08-02 14:31] VITALS: BP 124/71; PULSE 115; RESP 18
--- NOTE | 2018-08-02 16:00 | PN ---
Date/Time of Note Date/Time of Note DATE: 08/02/18 TIME: 15:57 Assessment/Plan VTE Prophylaxis Risk score (from Ns)>0 risk: 4 SCD applied (from Ns): Yes Pharmacological prophylaxis: NA/contraindicated Pharm contraindication: low risk/ambulating Lines/Catheters IV [facility] ([facility] Peripheral IV Assessment/Plan Hospital Course SUBJECTIVE: Continues to have abdominal pain. Denies any nausea vomiting. OBJECTIVE: Physical Exam General: Adequately build 18 year-old female lying in bed in no apparent distress. HEENT: Normocephalic, atraumatic. Eyes: Anicteric sclerae, conjunctivae clear. ENT: Nasal septum midline, oral mucosa is moist. Neck supple, no JVD noticed. Respiratory: Bilaterally clear breath sounds. No use of accessory muscles of respiration. No adventitious breath sounds. Cardiovascular: S1, S2 heard. No murmurs or gallops. Abdomen: Soft and nondistended. Epigastric tenderness. Bowel sounds positive in all 4 quadrants. Genitourinary: Deferred. Extremities: No cyanosis, no clubbing, no edema. Peripheral pulses palpable. Neurologic: Cranial nerves II through XII grossly intact. The patient is awake, alert, and oriented. Skin: Normal skin turgor. No skin rashes. Labs & Vitals per chart ASSESSMENT & PLAN 18-year-old female with past medical history of gallstone pancreatitis, status post cholecystectomy on 07/08/2018. The patient went to the local emergency room complaining of right upper quadrant abdominal pain. The patient also reported nausea and vomiting. The patient's right upper quadrant ultrasound showed dilated common bile duct. The patient was transferred to [facility] for further evaluation because of insurance reasons. The patient had evidence of sepsis with leukocytosis, febrile illness, tachycardia at [facility]. 1. Sepsis with leukocytosis, febrile illness, and tachycardia, probably secondary to underlying cholangitis. -Continue antimicrobials including coverage for anaerobes. -Pending lopez cultures. 2. Dilated common bile duct. -Pending MRCP. -Being followed by gastroenterology. -Continue empiric antibiotic for any underlying cholangitis. 3. Transaminitis without hyperbilirubinemia. -Most probably secondary to #1 #2. -Trend LFTs. 4. Breast-feeding status -Pump and dump. 5. Fluids, electrolytes, and nutrition. -Clear liquid diet. 6. DVT prophylaxis. -Bilateral SCDs. 7. Plan: -Continue antimicrobials -Await pancultures. -Await MRCP results. The patient was seen in collaboration with Dr. Diaz. Result Diagram: 08/02/18 0558 08/02/18 0558 Results 24hrs Laboratory Tests Test 08/01/18 22:34 08/01/18 22:41 08/02/18 05:58 08/02/18 06:22 Lipase 32 Serum HCG, NEGATIVE Qualitative White Blood Count 11.8 #H 15.5 #H Red Blood Count 3.93 L 4.02 L Hemoglobin 10.1 L 10.3 L Hematocrit 33.4 L 33.9 L Mean Corpuscular 85.0 84.3 Volume Mean Corpuscular 25.7 L 25.6 L Hemoglobin Mean Corpuscular 30.2 L 30.4 L Hemoglobin Concent Red Cell 15.2 H 15.4 H Distribution Width Platelet Count 295 295 Mean Platelet Volume 10.7 H 11.2 H Immature 0.500 H 0.600 H Granulocytes % Neutrophils % 87.2 H 89.2 H Lymphocytes % 6.9 L 3.9 L Monocytes % 5.0 6.1 Eosinophils % 0.1 0.0 Basophils % 0.3 0.2 Nucleated Red Blood 0.0 0.0 Cells % Immature 0.060 H 0.100 H Granulocytes # Neutrophils # 10.3 H 13.8 H Lymphocytes # 0.8 0.6 L Monocytes # 0.6 1.0 H Eosinophils # 0.0 0.0 Basophils # 0.0 0.0 Nucleated Red Blood 0.0 0.0 Cells # Prothrombin Time 14.5 Prothrombin Time 1.1 Ratio INR International 1.12 Normalized Ratio Activated 29.2 Partial Thromboplast Time Sodium Level 141 143 Potassium Level 3.9 4.0 Chloride Level 105 102 Carbon Dioxide Level 25 27 Anion Gap 11 14 H Blood Urea Nitrogen 11 11 Creatinine 0.42 L 0.50 Est Glomerular > 60 > 60 Filtrat Rate mL/min Glucose Level 98 120 Calcium Level 9.4 9.6 Magnesium Level 1.6 L Total Bilirubin 0.5 0.7 Direct Bilirubin 0.00 0.00 Indirect Bilirubin 0.5 0.7 Aspartate Amino 221 H 378 H Transf (AST/SGOT) Alanine 112 H 217 H Aminotransferase (AL T/SGPT) Alkaline Phosphatase 201 H 262 H Total Protein 7.4 8.0 Albumin 4.2 4.4 Globulin 3.20 3.60 H Albumin/Globulin 1.31 1.22 Ratio Triglycerides Level 45 Cholesterol Level 134 LDL Cholesterol, 49 Calculated HDL Cholesterol 76 Cholesterol/HDL 1.7 Ratio Thyroid Stimulating 0.533 Hormone (TSH) Urine Color YELLOW Urine Clarity TURBID A Urine pH 5.0 Urine Specific 1.032 H [place]on Urine Ketones 2+ H Urine Nitrite NEGATIVE Urine Bilirubin 1+ H Urine Urobilinogen 2+ H Urine Leukocyte TRACE A Esterase Urine Microscopic 0 RBC Urine Microscopic 11 H WBC Urine Squamous FEW Epithelial Cells Urine Bacteria MANY A Urine Mucus FEW A Urine Hemoglobin NEGATIVE Urine Glucose NEGATIVE Urine Total Protein 1+ H Exam/Review of Systems Exam Vitals Vital Signs Date Temp Pulse Resp B/P (MAP) Pulse Ox O2 O2 Flow FiO2 Time Delivery Rate 08/02/18 100.8 115 18 124/71 98 Room Air 14:31 (88) Intake and Output 08/01/18 08/01/18 08/02/18 1515:00 23:00 07:00 IntakeIntake Total 1050 ml BalanceBalance 1050 ml Results Results 24hrs Laboratory Tests Test 08/01/18 22:34 08/01/18 22:41 08/02/18 05:58 08/02/18 06:22 Lipase 32 Serum HCG, NEGATIVE Qualitative White Blood Count 11.8 #H 15.5 #H Red Blood Count 3.93 L 4.02 L Hemoglobin 10.1 L 10.3 L Hematocrit 33.4 L 33.9 L Mean Corpuscular 85.0 84.3 Volume Mean Corpuscular 25.7 L 25.6 L Hemoglobin Mean Corpuscular 30.2 L 30.4 L Hemoglobin Concent Red Cell 15.2 H 15.4 H Distribution Width Platelet Count 295 295 Mean Platelet Volume 10.7 H 11.2 H Immature 0.500 H 0.600 H Granulocytes % Neutrophils % 87.2 H 89.2 H Lymphocytes % 6.9 L 3.9 L Monocytes % 5.0 6.1 Eosinophils % 0.1 0.0 Basophils % 0.3 0.2 Nucleated Red Blood 0.0 0.0 Cells % Immature 0.060 H 0.100 H Granulocytes # Neutrophils # 10.3 H 13.8 H Lymphocytes # 0.8 0.6 L Monocytes # 0.6 1.0 H Eosinophils # 0.0 0.0 Basophils # 0.0 0.0 Nucleated Red Blood 0.0 0.0 Cells # Prothrombin Time 14.5 Prothrombin Time 1.1 Ratio INR International 1.12 Normalized Ratio Activated 29.2 Partial Thromboplast Time Sodium Level 141 143 Potassium Level 3.9 4.0 Chloride Level 105 102 Carbon Dioxide Level 25 27 Anion Gap 11 14 H Blood Urea Nitrogen 11 11 Creatinine 0.42 L 0.50 Est Glomerular > 60 > 60 Filtrat Rate mL/min Glucose Level 98 120 Calcium Level 9.4 9.6 Magnesium Level 1.6 L Total Bilirubin 0.5 0.7 Direct Bilirubin 0.00 0.00 Indirect Bilirubin 0.5 0.7 Aspartate Amino 221 H 378 H Transf (AST/SGOT) Alanine 112 H 217 H Aminotransferase (AL T/SGPT) Alkaline Phosphatase 201 H 262 H Total Protein 7.4 8.0 Albumin 4.2 4.4 Globulin 3.20 3.60 H Albumin/Globulin 1.31 1.22 Ratio Triglycerides Level 45 Cholesterol Level 134 LDL Cholesterol, 49 Calculated HDL Cholesterol 76 Cholesterol/HDL 1.7 Ratio Thyroid Stimulating 0.533 Hormone (TSH) Urine Color YELLOW Urine Clarity TURBID A Urine pH 5.0 Urine Specific 1.032 H [place]on Urine Ketones 2+ H Urine Nitrite NEGATIVE Urine Bilirubin 1+ H Urine Urobilinogen 2+ H Urine Leukocyte TRACE A Esterase Urine Microscopic 0 RBC Urine Microscopic 11 H WBC Urine Squamous FEW Epithelial Cells Urine Bacteria MANY A Urine Mucus FEW A Urine Hemoglobin NEGATIVE Urine Glucose NEGATIVE Urine Total Protein 1+ H Medications Medication Current Medications Sodium Chloride 1,000 ml @ 100 mls/hr Q10H IV Last administered on 08/02/18at 10:54; Admin Dose 100 MLS/HR; Start 08/01/18 at 22:22 IV Flush (NS 3 ml) 3 ml PER PROTOCOL IV ; Start 08/01/18 at 22:30 Acetaminophen (Tylenol Tab) 650 mg Q6H PRN PO .PAIN 1-3 OR TEMP Last administered on 08/02/18at 05:43; Admin Dose 650 MG; Start 08/01/18 at 22:30 Ondansetron HCl (Zofran Inj) 4 mg Q4H PRN IV NAUSEA AND/OR VOMITING Last admin istered on 08/02/18at 13:02; Admin Dose 4 MG; Start 08/01/18 at 23:30 Metoclopramide HCl (Reglan) 10 mg Q6H PRN IV NAUSEA; Start 08/01/18 at 23:30 Influenza Virus Vaccine Quadrival (Fluzone) 0.5 ml ONCE ONCE IM* ; Start 08/04/18 at 10:00; Stop 08/04/18 at 10:01 Morphine Sulfate (morphine) 2 mg Q4H PRN IV SEVERE PAIN LEVEL 7-10; Start 08/02/18 at 04:00 Ketorolac Tromethamine (Toradol) 15 mg Q6H PRN IV PAIN; Start 08/02/18 at 04:00; Stop 08/05/18 at 03:59 Piperacillin Sod/ Tazobactam Sod 100 ml @ 200 mls/hr Q6 IVPB Last administered on 08/02/18at 11:00; Admin Dose 200 MLS/HR; Start 08/02/18 at 06:00 Lubiprostone (Amitiza) 24 mcg BID PO Last administered on 08/02/18at 10:56; Admin Dose 24 MCG; Start 08/02/18 at 10:00 Ranitidine HCl (Zantac) 150 mg BID PO Last administered on 08/02/18at 10:56; Admin Dose 150 MG; Start 08/02/18 at 10:00 TIMBO BRADY NP Aug 02, 2018 16:00
[2018-08-02 20:00] VITALS: BP 113/57; PULSE 82; RESP 19
[2018-08-03 02:00] VITALS: BP 111/61; PULSE 72; RESP 18
[2018-08-03] MEDS: SOD CHLORIDE 0.9% 1,000 ML IV SCH ×2 (03:36→15:53)
[2018-08-03] MEDS: PIPER-TAZO 3.375 GM IV (PMX) 100 ML IVPB SCH ×3 (05:18→17:28)
[2018-08-03 08:15] VITALS: BP 115/59; PULSE 82; RESP 18
[2018-08-03] MEDS: LUBIPROSTONE 24 MCG CAP PO SCH (09:20)
[2018-08-03] MEDS: RANITIDINE 150 MG TAB PO SCH ×2 (09:20→20:48)
--- NOTE | 2018-08-03 11:09 | PN ---
Date/Time of Note Date/Time of Note DATE: 08/03/18 TIME: 11:04 Assessment/Plan VTE Prophylaxis Risk score (from Ns)>0 risk: 2 SCD applied (from Ns): Yes Pharmacological prophylaxis: NA/contraindicated Pharm contraindication: low risk/ambulating Lines/Catheters [facility] IV Assessment/Plan Hospital Course SUBJECTIVE: Denies any nausea vomiting. OBJECTIVE: Physical Exam General: Adequately build 18 year-old female lying in bed in no apparent distress. HEENT: Normocephalic, atraumatic. Eyes: Anicteric sclerae, conjunctivae clear. ENT: Nasal septum midline, oral mucosa is moist. Neck supple, no JVD noticed. Respiratory: Bilaterally clear breath sounds. No use of accessory muscles of respiration. No adventitious breath sounds. Cardiovascular: S1, S2 heard. No murmurs or gallops. Abdomen: Soft and nondistended. Epigastric tenderness. Bowel sounds positive in all 4 quadrants. Genitourinary: Deferred. Extremities: No cyanosis, no clubbing, no edema. Peripheral pulses palpable. Neurologic: Cranial nerves II through XII grossly intact. The patient is awake, alert, and oriented. Skin: Normal skin turgor. No skin rashes. Labs & Vitals per chart ASSESSMENT & PLAN 18-year-old female with past medical history of gallstone pancreatitis, status post cholecystectomy on 07/08/2018. The patient went to the local emergency room complaining of right upper quadrant abdominal pain. The patient also reported nausea and vomiting. The patient's right upper quadrant ultrasound showed dilated common bile duct. The patient was transferred to [facility] for further evaluation because of insurance reasons. The patient had evidence of sepsis with leukocytosis, febrile illness, tachycardia at [facility]. 1. Sepsis with leukocytosis, febrile illness, and tachycardia, probably secondary to underlying cholangitis. -Continue antimicrobials including coverage for anaerobes. -blood, urine and flu test negative so far -improving 2. Dilated common bile duct. -MRCP: negative, LFTs improving -defer ERCP decision to GI, patient has likely passed the stone, but does she need a stent? 3. Transaminitis without hyperbilirubinemia.: improving -Most probably secondary to #1 #2. -Trend LFTs. 4. Breast-feeding status -Pump and dump. 5. Fluids, electrolytes, and nutrition. -Clear liquid diet. -May need to be NPO if to get ERCP, if not, advance as tolerated 6. DVT prophylaxis. -Bilateral SCDs. 7. Plan: -Continue antimicrobials -f/u GI plan, continue supportive care Result Diagram: 08/03/18 0559 08/03/18 0559 Results 24hrs Laboratory Tests Test 08/03/18 05:59 White Blood Count 10.0 # Red Blood Count 3.25 L Hemoglobin 8.5 L Hematocrit 27.5 L Mean Corpuscular Volume 84.6 Mean Corpuscular Hemoglobin 26.2 L Mean Corpuscular Hemoglobin Concent 30.9 L Red Cell Distribution Width 15.6 H Platelet Count 232 # Mean Platelet Volume 10.9 H Immature Granulocytes % 0.400 Neutrophils % 68.6 Lymphocytes % 17.2 L Monocytes % 9.6 Eosinophils % 3.8 Basophils % 0.4 Nucleated Red Blood Cells % 0.0 Immature Granulocytes # 0.040 H Neutrophils # 6.9 Lymphocytes # 1.7 Monocytes # 1.0 H Eosinophils # 0.4 Basophils # 0.0 Nucleated Red Blood Cells # 0.0 Sodium Level 142 Potassium Level 3.3 L Chloride Level 105 Carbon Dioxide Level 26 Anion Gap 11 Blood Urea Nitrogen 6 L Creatinine 0.47 Est Glomerular Filtrat Rate mL/min > 60 Glucose Level 86 Calcium Level 9.1 Phosphorus Level 3.4 Magnesium Level 1.9 Total Bilirubin 0.4 Direct Bilirubin 0.00 Indirect Bilirubin 0.4 Aspartate Amino Transf (AST/SGOT) 111 H Alanine Aminotransferase (ALT/SGPT) 143 H Alkaline Phosphatase 173 H Total Protein 6.5 # Albumin 3.3 # Globulin 3.20 Albumin/Globulin Ratio 1.03 Exam/Review of Systems Exam Vitals Vital Signs Date Temp Pulse Resp B/P (MAP) Pulse Ox O2 O2 Flow FiO2 Time Delivery Rate 08/03/18 99.3 82 18 115/59 98 Room Air 08:15 (77) Intake and Output 08/02/18 08/02/18 08/03/18 1515:00 23:00 07:00 IntakeIntake Total 1300 ml 1260 ml 1250 ml BalanceBalance 1300 ml 1260 ml 1250 ml Results Results 24hrs Laboratory Tests Test 08/03/18 05:59 White Blood Count 10.0 # Red Blood Count 3.25 L Hemoglobin 8.5 L Hematocrit 27.5 L Mean Corpuscular Volume 84.6 Mean Corpuscular Hemoglobin 26.2 L Mean Corpuscular Hemoglobin Concent 30.9 L Red Cell Distribution Width 15.6 H Platelet Count 232 # Mean Platelet Volume 10.9 H Immature Granulocytes % 0.400 Neutrophils % 68.6 Lymphocytes % 17.2 L Monocytes % 9.6 Eosinophils % 3.8 Basophils % 0.4 Nucleated Red Blood Cells % 0.0 Immature Granulocytes # 0.040 H Neutrophils # 6.9 Lymphocytes # 1.7 Monocytes # 1.0 H Eosinophils # 0.4 Basophils # 0.0 Nucleated Red Blood Cells # 0.0 Sodium Level 142 Potassium Level 3.3 L Chloride Level 105 Carbon Dioxide Level 26 Anion Gap 11 Blood Urea Nitrogen 6 L Creatinine 0.47 Est Glomerular Filtrat Rate mL/min > 60 Glucose Level 86 Calcium Level 9.1 Phosphorus Level 3.4 Magnesium Level 1.9 Total Bilirubin 0.4 Direct Bilirubin 0.00 Indirect Bilirubin 0.4 Aspartate Amino Transf (AST/SGOT) 111 H Alanine Aminotransferase (ALT/SGPT) 143 H Alkaline Phosphatase 173 H Total Protein 6.5 # Albumin 3.3 # Globulin 3.20 Albumin/Globulin Ratio 1.03 Imaging Imaging PROCEDURE: MRI abdomen without contrast and MRCP. CLINICAL INDICATION: Abdominal pain. Biliary obstruction. Cholecystectomy 1 month ago.. TECHNIQUE: MRI without contrast using multiple sequences and MRCP was performed on the a high-resolution, high [place] field strength scanner. No intravenous contrast. 3-D coronal rotating MIP images of the biliary tree were reviewed. COMPARISON: HIDA and MRI 07/07/2018 FINDINGS: Gallbladder surgically absent.. No intrahepatic nor extrahepatic biliary dilatation. Common bile duct measures 4 mm. No biliary duct filling defect. No obstructing mass visualized. The pancreatic duct is nondilated. No pleural effusion. No peritoneal free fluid. 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 Normal T2 signal of the liver, pancreas, spleen, adrenal glands and kidneys. No hydronephrosis. IMPRESSION: 1. No evidence of biliary obstruction. Post cholecystectomy. 2. Incidental note of fused horseshoe kidney. RPTAT:AAJJ Michael Hepfer, Physician Date Time Electronically viewed and signed by Jude Pop, Physician on 08/02/2018 17:27 MH/ CC: JUAN GAN [id number] Medications Medication Current Medications Sodium Chloride 1,000 ml @ 100 mls/hr Q10H IV Last administered on 08/03/18 03:36; Admin Dose 100 MLS/HR; Start 08/01/18 at 22:22 IV Flush (NS 3 ml) 3 ml PER PROTOCOL IV ; Start 08/01/18 at 22:30 Acetaminophen (Tylenol Tab) 650 mg Q6H PRN PO .PAIN 1-3 OR TEMP Last administered on 08/02/18at 05:43; Admin Dose 650 MG; Start 08/01/18 at 22:30 Ondansetron HCl (Zofran Inj) 4 mg Q4H PRN IV NAUSEA AND/OR VOMITING Last administered on 08/02/18at 13:02; Admin Dose 4 MG; Start 08/01/18 at 23:30 Metoclopramide HCl (Reglan) 10 mg Q6H PRN IV NAUSEA; Start 08/01/18 at 23:30 Influenza Virus Vaccine Quadrival (Fluzone) 0.5 ml ONCE ONCE IM* ; Start 08/04/18 at 10:00; Stop 08/04/18 at 10:01 Morphine Sulfate (morphine) 2 mg Q4H PRN IV SEVERE PAIN LEVEL 7-10; Start 08/02/18 at 04:00 Ketorolac Tromethamine (Toradol) 15 mg Q6H PRN IV PAIN; Start 08/02/18 at 04:00; Stop 08/05/18 at 03:59 Piperacillin Sod/ Tazobactam Sod 100 ml @ 200 mls/hr Q6 IVPB Last administered on 08/03/18at 05:18; Admin Dose 200 MLS/HR; Start 08/02/18 at 06:00 Lubiprostone (Amitiza) 24 mcg BID PO Last administered on 08/03/18 09:20; Admin Dose 24 MCG; Start 08/02/18 at 10:00 Ranitidine HCl (Zantac) 150 mg BID PO Last administered on 08/03/18at 09:20; Admin Dose 150 MG; Start 08/02/18 at 10:00 ANGEL MOONEY Aug 03, 2018 11:09
[2018-08-03] MEDS ORDERED: POTASSIUM CHLORIDE (SR) 20 MEQ TAB PO STA (12:48)
--- NOTE | 2018-08-03 12:48 | PN ---
Date/Time of Note Date/Time of Note DATE: 08/03/18 TIME: 12:41 Assessment/Plan VTE Prophylaxis Risk score (from Nsg)>0 risk: 2 SCD applied (from Nsg): Yes Pharmacological prophylaxis: other (scds) Lines/Catheters IV Catheter Type (from Nrsg): Peripheral IV Assessment/Plan Hospital Course Assessment: Upper abdominal pain Nausea/vomiting [place] abd u/s Dilated common bile duct -12.8 cm- -MRCP CBD measures 4 mm -MRCP No evidence of biliary obstruction. Transaminitis- trending down Leukocytosis- resolved Fever Chronic constipation -Pt now having loose stool with Amitiza- will stop Amitiza Recent childbirth 05/2018 Status post cholecystectomy 07/08/18 Plan: Reviewed MRCP- no biliary dilation CBD measures 4mm- No plan for ERCP at this time Advance diet as tolerated- low fat Monitor LFTs Pt now c/o loose stool will stop Amitiza Patient seen in collaboration with Dr. Tavares Subjective: Course reviewed with nursing staff Patient interviewed and examined All labs, imaging and other results reviewed The patient feels well, no c/o abd pain currently, no c/o n/v on clear liquid diet Discussed results of MRCP and currently lab values. Monitor over night If able to tolerate po intake and LFTs continue to decrease, ok to d/c from GI point of view tomorrow PHYSICAL EXAMINATION: GENERAL: Well developed, well nourished, alert & oriented x 3, in no acute distress SKIN: No lesions EYES: Pupils equal reactive to light, no discharge. EARS/NOSE AND THROAT: Ears normal, nose normal, oropharynx normal. NECK: Supple, no masses CHEST: Inspection within normal limits. CARDIOVASCULAR: Heart: Regular rate and rhythm, RESPIRATORY: Lungs clear to auscultation GASTROINTESTINAL AND LIVER: Abdomen: Soft, upper abdominal tenderness, non- distended, no hernias, no masses, no organomegaly, no ascites, no guarding, no rebound tenderness, normoactive bowel sounds. Rectal: Deferred. GENITOURINARY: Female genitalia within normal limits. EXTREMITIES: No cyanosis, clubbing or edema. Result Diagram: 08/03/18 0559 08/03/18 0559 Results 24hrs Laboratory Tests Test 08/03/18 05:59 White Blood Count 10.0 # Red Blood Count 3.25 L Hemoglobin 8.5 L Hematocrit 27.5 L Mean Corpuscular Volume 84.6 Mean Corpuscular Hemoglobin 26.2 L Mean Corpuscular Hemoglobin Concent 30.9 L Red Cell Distribution Width 15.6 H Platelet Count 232 # Mean Platelet Volume 10.9 H Immature Granulocytes % 0.400 Neutrophils % 68.6 Lymphocytes % 17.2 L Monocytes % 9.6 Eosinophils % 3.8 Basophils % 0.4 Nucleated Red Blood Cells % 0.0 Immature Granulocytes # 0.040 H Neutrophils # 6.9 Lymphocytes # 1.7 Monocytes # 1.0 H Eosinophils # 0.4 Basophils # 0.0 Nucleated Red Blood Cells # 0.0 Sodium Level 142 Potassium Level 3.3 L Chloride Level 105 Carbon Dioxide Level 26 Anion Gap 11 Blood Urea Nitrogen 6 L Creatinine 0.47 Est Glomerular Filtrat Rate mL/min > 60 Glucose Level 86 Calcium Level 9.1 Phosphorus Level 3.4 Magnesium Level 1.9 Total Bilirubin 0.4 Direct Bilirubin 0.00 Indirect Bilirubin 0.4 Aspartate Amino Transf (AST/SGOT) 111 H Alanine Aminotransferase (ALT/SGPT) 143 H Alkaline Phosphatase 173 H Total Protein 6.5 # Albumin 3.3 # Globulin 3.20 Albumin/Globulin Ratio 1.03 Exam/Review of Systems Exam Vitals Vital Signs Date Temp Pulse Resp B/P (MAP) Pulse Ox O2 O2 Flow FiO2 Time Delivery Rate 08/03/18 99.3 82 18 115/59 98 Room Air 08:15 (77) Intake and Output 08/02/18 08/02/18 08/03/18 1515:00 23:00 07:00 IntakeIntake Total 1300 ml 1260 ml 1250 ml BalanceBalance 1300 ml 1260 ml 1250 ml Results Results 24hrs Laboratory Tests Test 08/03/18 05:59 White Blood Count 10.0 # Red Blood Count 3.25 L Hemoglobin 8.5 L Hematocrit 27.5 L Mean Corpuscular Volume 84.6 Mean Corpuscular Hemoglobin 26.2 L Mean Corpuscular Hemoglobin Concent 30.9 L Red Cell Distribution Width 15.6 H Platelet Count 232 # Mean Platelet Volume 10.9 H Immature Granulocytes % 0.400 Neutrophils % 68.6 Lymphocytes % 17.2 L Monocytes % 9.6 Eosinophils % 3.8 Basophils % 0.4 Nucleated Red Blood Cells % 0.0 Immature Granulocytes # 0.040 H Neutrophils # 6.9 Lymphocytes # 1.7 Monocytes # 1.0 H Eosinophils # 0.4 Basophils # 0.0 Nucleated Red Blood Cells # 0.0 Sodium Level 142 Potassium Level 3.3 L Chloride Level 105 Carbon Dioxide Level 26 Anion Gap 11 Blood Urea Nitrogen 6 L Creatinine 0.47 Est Glomerular Filtrat Rate mL/min > 60 Glucose Level 86 Calcium Level 9.1 Phosphorus Level 3.4 Magnesium Level 1.9 Total Bilirubin 0.4 Direct Bilirubin 0.00 Indirect Bilirubin 0.4 Aspartate Amino Transf (AST/SGOT) 111 H Alanine Aminotransferase (ALT/SGPT) 143 H Alkaline Phosphatase 173 H Total Protein 6.5 # Albumin 3.3 # Globulin 3.20 Albumin/Globulin Ratio 1.03 Medications Medication Current Medications Sodium Chloride 1,000 ml @ 100 mls/hr Q10H IV Last administered on 08/03/18at 03:36; Admin Dose 100 MLS/HR; Start 08/01/18 at 22:22 IV Flush (NS 3 ml) 3 ml PER PROTOCOL IV ; Start 08/01/18 at 22:30 Acetaminophen (Tylenol Tab) 650 mg Q6H PRN PO .PAIN 1-3 OR TEMP Last administered on 08/02/18at 05:43; Admin Dose 650 MG; Start 08/01/18 at 22:30 Ondansetron HCl (Zofran Inj) 4 mg Q4H PRN IV NAUSEA AND/OR VOMITING Last administered on 08/02/18at 13:02; Admin Dose 4 MG; Start 08/01/18 at 23:30 Metoclopramide HCl (Reglan) 10 mg Q6H PRN IV NAUSEA; Start 08/01/18 at 23:30 Influenza Virus Vaccine Quadrival (Fluzone) 0.5 ml ONCE ONCE IM* ; Start at 10:00; Stop 08/04/18 at 10:01 Morphine Sulfate (morphine) 2 mg Q4H PRN IV SEVERE PAIN LEVEL 7-10; Start 08/02/18 at 04:00 Ketorolac Tromethamine (Toradol) 15 mg Q6H PRN IV PAIN; Start 08/02/18 at 04:00; Stop 08/05/18 at 03:59 Piperacillin Sod/ Tazobactam Sod 100 ml @ 200 mls/hr Q6 IVPB Last administered on 08/03/18at 12:19; Admin Dose 200 MLS/HR; Start 08/02/18 at 06:00 Lubiprostone (Amitiza) 24 mcg BID PO Last administered on 08/03/18 09:20; Admin Dose 24 MCG; Start 08/02/18 at 10:00 Ranitidine HCl (Zantac) 150 mg BID PO Last administered on 08/03/18at 09:20; Admin Dose 150 MG; Start 08/02/18 at 10:00 XAVIER JAVIER Aug 03, 2018 12:48
[2018-08-03 15:13] VITALS: BP 123/75; PULSE 78; RESP 18
[2018-08-03 20:33] VITALS: BP 118/72; PULSE 76; RESP 20
[2018-08-04] MEDS: PIPER-TAZO 3.375 GM IV (PMX) 100 ML IVPB SCH ×4 (00:06→17:49)
[2018-08-04 02:00] VITALS: BP 111/69; PULSE 69; RESP 20
[2018-08-04] MEDS: SOD CHLORIDE 0.9% 1,000 ML IV SCH (02:44)
[2018-08-04 08:19] VITALS: BP 108/61; PULSE 66; RESP 18
[2018-08-04] MEDS: RANITIDINE 150 MG TAB PO SCH (09:16)
[2018-08-04] MEDS ORDERED: INFLUENZA VIRUS VACCINE 0.5 ML (DISPENSING) IM* ONE (10:00)
--- NOTE | 2018-08-04 11:41 | DS ---
Date/Time of Note Date/Time of Note DATE: 08/04/18 TIME: 11:41 Discharge Summary Admission/Discharge Info Admit Date/Time Aug 01, 2018 at 20:30 Discharge Date/Time Patient Condition: Stable Hospital Course See progress note from today . Home Meds Active Scripts Metronidazole* (Flagyl*) 500 Mg Tablet, 500 MG PO Q8, #9 TAB Prov:ANGEL MOONEY. 08/04/18 Ciprofloxacin Hcl* (Ciprofloxacin Hcl*) 500 Mg Tablet, 500 MG PO BID, #6 TAB Prov:ANGEL MOONEY. 08/04/18 Acetaminophen* (Acetaminophen*) 650 Mg Tablet, 650 MG PO Q6H PRN for MILD PAIN(1-3)OR ELEVATED TEMP, #30 TAB Prov:ANGEL MOONEY. 08/04/18 Reported Medications [id number]/Iron Fumarate/FA/Dss ( 19 Tablet) 1 Each Tablet, 1 EACH PO DAILY, TAB 03/22/18 Primary Care Provider Not On Staff Doctor Pending Labs Laboratory Tests Test 08/04/18 07:04 White Blood Count 7.3 10^3/ul (4.8-10.8) Red Blood Count 3.34 10^6/ul (4.20-5.40) Hemoglobin 8.6 g/dl (12.0-16.0) Hematocrit 28.1 % (37.0-47.0) Mean Corpuscular Volume 84.1 fl (72.0-104.0) Mean Corpuscular Hemoglobin 25.7 pg (29.0-33.0) Mean Corpuscular Hemoglobin Concent 30.6 g/dl (32.0-37.0) Red Cell Distribution Width 15.3 % (11.5-14.5) Platelet Count 233 10^3/UL (140-415) Mean Platelet Volume 11.3 fl (7.4-10.4) Immature Granulocytes % 0.300 % (0.001-0.429) Neutrophils % 57.0 % (30.0-74.0) Lymphocytes % 26.5 % (18.0-55.0) Monocytes % 11.2 % (0.0-13.0) Eosinophils % 4.7 % (0.0-7.0) Basophils % 0.3 % (0.0-2.0) Nucleated Red Blood Cells % 0.0 /100WBC (0.0-0.0) Immature Granulocytes # 0.020 10^3/ul (0.0-0.031) Neutrophils # 4.1 10^3/ul (1.6-7.5) Lymphocytes # 1.9 10^3/ul (0.8-2.9) Monocytes # 0.8 10^3/ul (0.3-0.9) Eosinophils # 0.3 10^3/ul (0.0-0.5) Basophils # 0.0 10^3/ul (0.0-0.1) Nucleated Red Blood Cells # 0.0 10^3/ul (0.0-0.0) Sodium Level 142 mmol/L (135-144) Potassium Level 3.7 mmol/L (3.5-5.1) Chloride Level 109 mmol/L (97-110) Carbon Dioxide Level 25 mmol/L (21-31) Anion Gap 8 (5-13) Blood Urea Nitrogen 4 mg/dl (7-20) Creatinine 0.38 mg/dl (0.44-1.00) Est Glomerular Filtrat Rate mL/min > 60 mL/min (>60) Glucose Level 88 mg/dl (70-220) Calcium Level 8.8 mg/dl (8.4-10.2) Total Bilirubin 0.2 mg/dl (0.2-1.3) Direct Bilirubin 0.00 mg/dl (0.00-0.20) Indirect Bilirubin 0.2 mg/dl (0-1.1) Aspartate Amino Transf (AST/SGOT) 111 IU/L (15-46) Alanine Aminotransferase (ALT/SGPT) 112 IU/L (13-69) Alkaline Phosphatase 174 IU/L (42-121) Total Protein 6.1 g/dl (6.1-8.1) Albumin 3.2 g/dl (3.3-4.9) Globulin 2.90 g/dl (1.3-3.2) Albumin/Globulin Ratio 1.10 ANGEL MOONEY Aug 04, 2018 11:41
--- NOTE | 2018-08-04 11:43 | PN ---
Date/Time of Note Date/Time of Note DATE: 08/04/18 TIME: 11:42 Assessment/Plan VTE Prophylaxis Risk score (from Ns)>0 risk: 1 SCD applied (from Ns): Yes SCD contraindicated: low risk/ambulating Pharmacological prophylaxis: NA/contraindicated Pharm contraindication: low risk/ambulating Lines/Catheters IV [facility] Type (from [facility]): Peripheral IV Assessment/Plan Hospital Course 18-year-old female who had recently undergone a cholecystectomy due to gallstone pancreatitis who presented again with the epigastric abdominal pain as well as transaminitis. Ultrasound at outside emergency room had showed a dilated common bile duct and she was sent to us for further management due to insurance reasons. MRCP however showed no choledocholithiasis and had liver enzymes showed an improvement in the trend. Likely patient has passed obstructing stone. At this point she has been commenced on a diet, but she is still complaining of mild abdominal pain and her LFTs did not show any significant improvement from yesterday. Will await GI review. If cleared by GI will probably discharge her if not she may need to proceed to ERCP. Disposition: Discharge if cleared by GI Result Diagram: 08/04/18 0704 08/04/18 0704 Results 24hrs Laboratory Tests Test 08/04/18 07:04 White Blood Count 7.3 # Red Blood Count 3.34 L Hemoglobin 8.6 L Hematocrit 28.1 L Mean Corpuscular Volume 84.1 Mean Corpuscular Hemoglobin 25.7 L Mean Corpuscular Hemoglobin Concent 30.6 L Red Cell Distribution Width 15.3 H Platelet Count 233 Mean Platelet Volume 11.3 H Immature Granulocytes % 0.300 Neutrophils % 57.0 Lymphocytes % 26.5 Monocytes % 11.2 Eosinophils % 4.7 Basophils % 0.3 Nucleated Red Blood Cells % 0.0 Immature Granulocytes # 0.020 Neutrophils # 4.1 Lymphocytes # 1.9 Monocytes # 0.8 Eosinophils # 0.3 Basophils # 0.0 Nucleated Red Blood Cells # 0.0 Sodium Level 142 Potassium Level 3.7 Chloride Level 109 Carbon Dioxide Level 25 Anion Gap 8 Blood Urea Nitrogen 4 L Creatinine 0.38 L Est Glomerular Filtrat Rate mL/min > 60 Glucose Level 88 Calcium Level 8.8 Total Bilirubin 0.2 Direct Bilirubin 0.00 Indirect Bilirubin 0.2 Aspartate Amino Transf (AST/SGOT) 111 H Alanine Aminotransferase (ALT/SGPT) 112 H Alkaline Phosphatase 174 H Total Protein 6.1 Albumin 3.2 L Globulin 2.90 Albumin/Globulin Ratio 1.10 Subjective 24 Hr Interval Summary Free Text/Dictation Had some pain earlier, no pain as of now, desires discharge. Exam/Review of Systems Exam Vitals Vital Signs Date Temp Pulse Resp B/P (MAP) Pulse Ox O2 O2 Flow FiO2 Time Delivery Rate 08/04/18 98.3 66 18 108/61 98 Room Air 08:19 (77) Intake and Output 08/03/18 08/03/18 08/04/18 1414:59 22:59 06:59 IntakeIntake Total 580 ml 2090 ml 1655 ml BalanceBalance 580 ml 2090 ml 1655 ml Constitutional: alert, oriented Head: atraumatic Eyes: No icteric Respiratory: clear to auscultation Cardiovascular: regular rate and rhythm Gastrointestinal: soft, non-tender, bowel sounds Extremities: No edema Results Results 24hrs Laboratory Tests Test 08/04/18 07:04 White Blood Count 7.3 # Red Blood Count 3.34 L Hemoglobin 8.6 L Hematocrit 28.1 L Mean Corpuscular Volume 84.1 Mean Corpuscular Hemoglobin 25.7 L Mean Corpuscular Hemoglobin Concent 30.6 L Red Cell Distribution Width 15.3 H Platelet Count 233 Mean Platelet Volume 11.3 H Immature Granulocytes % 0.300 Neutrophils % 57.0 Lymphocytes % 26.5 Monocytes % 11.2 Eosinophils % 4.7 Basophils % 0.3 Nucleated Red Blood Cells % 0.0 Immature Granulocytes # 0.020 Neutrophils # 4.1 Lymphocytes # 1.9 Monocytes # 0.8 Eosinophils # 0.3 Basophils # 0.0 Nucleated Red Blood Cells # 0.0 Sodium Level 142 Potassium Level 3.7 Chloride Level 109 Carbon Dioxide Level 25 Anion Gap 8 Blood Urea Nitrogen 4 L Creatinine 0.38 L Est Glomerular Filtrat Rate mL/min > 60 Glucose Level 88 Calcium Level 8.8 Total Bilirubin 0.2 Direct Bilirubin 0.00 Indirect Bilirubin 0.2 Aspartate Amino Transf (AST/SGOT) 111 H Alanine Aminotransferase (ALT/SGPT) 112 H Alkaline Phosphatase 174 H Total Protein 6.1 Albumin 3.2 L Globulin 2.90 Albumin/Globulin Ratio 1.10 Medications Medication Current Medications Sodium Chloride 1,000 ml @ 100 mls/hr Q10H IV Last administered on 08/04/18 02:44; Admin Dose 100 MLS/HR; Start 08/01/18 at 22:22 IV Flush (NS 3 ml) 3 ml PER PROTOCOL IV ; Start 08/01/18 at 22:30 Acetaminophen (Tylenol Tab) 650 mg Q6H PRN PO .PAIN 1-3 OR TEMP Last administered on 08/02/18 05:43; Admin Dose 650 MG; Start 08/01/18 at 22:30 Ondansetron HCl (Zofran Inj) 4 mg Q4H PRN IV NAUSEA AND/OR VOMITING Last administered on 08/02/18 13:02; Admin Dose 4 MG; Start 08/01/18 at 23:30 Metoclopramide HCl (Reglan) 10 mg Q6H PRN IV NAUSEA; Start 08/01/18 at 23:30 Morphine Sulfate (morphine) 2 mg Q4H PRN IV SEVERE PAIN LEVEL 7-10 Last administered on 08/04/18 02:43; Admin Dose 2 MG; Start 08/02/18 at 04:00 Ketorolac Tromethamine (Toradol) 15 mg Q6H PRN IV PAIN; Start 08/02/18 at 04:00; Stop 08/05/18 at 03:59 Piperacillin Sod/ Tazobactam Sod 100 ml @ 200 mls/hr Q6 IVPB Last administered on 08/04/18 05:46; Admin Dose 200 MLS/HR; Start 08/02/18 at 06:00 Ranitidine HCl (Zantac) 150 mg BID PO Last administered on 08/04/18 09:16; Admin Dose 150 MG; Start 08/02/18 at 10:00 ANGEL MOONEY Aug 04, 2018 11:43
--- NOTE | 2018-08-04 12:23 | PN ---
Date/Time of Note Date/Time of Note DATE: 08/04/18 TIME: 12:22 Assessment/Plan VTE Prophylaxis Risk score (from Nsg)>0 risk: 1 SCD applied (from Nsg): Yes Pharmacological prophylaxis: other (scds) Lines/Catheters IV Catheter Type (from Nrsg): Peripheral IV Assessment/Plan Hospital Course Assessment: Upper abdominal pain Nausea/vomiting Outside abd u/s Dilated common bile duct -12.8 cm- -MRCP CBD measures 4 mm -MRCP No evidence of biliary obstruction. Transaminitis- trending down Leukocytosis- resolved Fever Chronic constipation -Pt now having loose stool with Amitiza- will stop Amitiza Recent childbirth 05/2018 Status post cholecystectomy 07/08/18 Plan: Ok to d/c after lunch if able to tolerate po intake and no c/o pain Will check hepatitis panel- likely negative Continue Zantac BID x4 weeks Pt to f/u with PCP in 1 week to recheck LFTS Patient seen in collaboration with Dr. Tavares Subjective: Course reviewed with nursing staff Patient interviewed and examined All labs, imaging and other results reviewed LFTs about the same as yesterday patient noted episode of pain about 2:00 this morning requiring pain medication. Since then she denies any further episodes of pain tolerating breakfast well. Patient states she wants to go home she denies abdominal pain, nausea or vomiting currently has minimal epigastric pain with deep palpation she is s/p EGD 07/10/18 showing Mild distal esophagitis Moderate gastritis, Moderate duodenitis, Biopsy showed chronic gastritis mild and patchy negative for H. pylori no evidence of malignancy PHYSICAL EXAMINATION: GENERAL: Well developed, well nourished, alert & oriented x 3, in no acute distress SKIN: No lesions EYES: Pupils equal reactive to light, no discharge. EARS/NOSE AND THROAT: Ears normal, nose normal, oropharynx normal. NECK: Supple, no masses CHEST: Inspection within normal limits. CARDIOVASCULAR: Heart: Regular rate and rhythm, RESPIRATORY: Lungs clear to auscultation GASTROINTESTINAL AND LIVER: Abdomen: Soft, upper abdominal tenderness- with deep palpation, non-distended, no hernias, no masses, no organomegaly, no ascites, no guarding, no rebound tenderness, normoactive bowel sounds. Rectal: Deferred. GENITOURINARY: Female genitalia within normal limits. EXTREMITIES: No cyanosis, clubbing or edema. Result Diagram: 08/04/18 0704 08/04/18 0704 Results 24hrs Laboratory Tests Test 08/04/18 07:04 White Blood Count 7.3 # Red Blood Count 3.34 L Hemoglobin 8.6 L Hematocrit 28.1 L Mean Corpuscular Volume 84.1 Mean Corpuscular Hemoglobin 25.7 L Mean Corpuscular Hemoglobin Concent 30.6 L Red Cell Distribution Width 15.3 H Platelet Count 233 Mean Platelet Volume 11.3 H Immature Granulocytes % 0.300 Neutrophils % 57.0 Lymphocytes % 26.5 Monocytes % 11.2 Eosinophils % 4.7 Basophils % 0.3 Nucleated Red Blood Cells % 0.0 Immature Granulocytes # 0.020 Neutrophils # 4.1 Lymphocytes # 1.9 Monocytes # 0.8 Eosinophils # 0.3 Basophils # 0.0 Nucleated Red Blood Cells # 0.0 Sodium Level 142 Potassium Level 3.7 Chloride Level 109 Carbon Dioxide Level 25 Anion Gap 8 Blood Urea Nitrogen 4 L Creatinine 0.38 L Est Glomerular Filtrat Rate mL/min > 60 Glucose Level 88 Calcium Level 8.8 Total Bilirubin 0.2 Direct Bilirubin 0.00 Indirect Bilirubin 0.2 Aspartate Amino Transf (AST/SGOT) 111 H Alanine Aminotransferase (ALT/SGPT) 112 H Alkaline Phosphatase 174 H Total Protein 6.1 Albumin 3.2 L Globulin 2.90 Albumin/Globulin Ratio 1.10 Exam/Review of Systems Exam Vitals Vital Signs Date Temp Pulse Resp B/P (MAP) Pulse Ox O2 O2 Flow FiO2 Time Delivery Rate 08/04/18 98.3 66 18 108/61 98 Room Air 08:19 (77) Intake and Output 08/03/18 08/03/18 08/04/18 1515:00 23:00 07:00 IntakeIntake Total 580 ml 2090 ml 1655 ml BalanceBalance 580 ml 2090 ml 1655 ml Results Results 24hrs Laboratory Tests Test 08/04/18 07:04 White Blood Count 7.3 # Red Blood Count 3.34 L Hemoglobin 8.6 L Hematocrit 28.1 L Mean Corpuscular Volume 84.1 Mean Corpuscular Hemoglobin 25.7 L Mean Corpuscular Hemoglobin Concent 30.6 L Red Cell Distribution Width 15.3 H Platelet Count 233 Mean Platelet Volume 11.3 H Immature Granulocytes % 0.300 Neutrophils % 57.0 Lymphocytes % 26.5 Monocytes % 11.2 Eosinophils % 4.7 Basophils % 0.3 Nucleated Red Blood Cells % 0.0 Immature Granulocytes # 0.020 Neutrophils # 4.1 Lymphocytes # 1.9 Monocytes # 0.8 Eosinophils # 0.3 Basophils # 0.0 Nucleated Red Blood Cells # 0.0 Sodium Level 142 Potassium Level 3.7 Chloride Level 109 Carbon Dioxide Level 25 Anion Gap 8 Blood Urea Nitrogen 4 L Creatinine 0.38 L Est Glomerular Filtrat Rate mL/min > 60 Glucose Level 88 Calcium Level 8.8 Total Bilirubin 0.2 Direct Bilirubin 0.00 Indirect Bilirubin 0.2 Aspartate Amino Transf (AST/SGOT) 111 H Alanine Aminotransferase (ALT/SGPT) 112 H Alkaline Phosphatase 174 H Total Protein 6.1 Albumin 3.2 L Globulin 2.90 Albumin/Globulin Ratio 1.10 Medications Medication Current Medications Sodium Chloride 1,000 ml @ 100 mls/hr Q10H IV Last administered on 08/04/18 02:44; Admin Dose 100 MLS/HR; Start 08/01/18 at 22:22 IV Flush (NS 3 ml) 3 ml PER PROTOCOL IV ; Start 08/01/18 at 22:30 Acetaminophen (Tylenol Tab) 650 mg Q6H PRN PO .PAIN 1-3 OR TEMP Last administered on 08/02/18at 05:43; Admin Dose 650 MG; Start 08/01/18 at 22:30 Ondansetron HCl (Zofran Inj) 4 mg Q4H PRN IV NAUSEA AND/OR VOMITING Last administered on 08/02/18at 13:02; Admin Dose 4 MG; Start 08/01/18 at 23:30 Metoclopramide HCl (Reglan) 10 mg Q6H PRN IV NAUSEA; Start 08/01/18 at 23:30 Morphine Sulfate (morphine) 2 mg Q4H PRN IV SEVERE PAIN LEVEL 7-10 Last administered on 08/04/18at 02:43; Admin Dose 2 MG; Start 08/02/18 at 04:00 Ketorolac Tromethamine (Toradol) 15 mg Q6H PRN IV PAIN; Start 08/02/18 at 04:00; Stop 08/05/18 at 03:59 Piperacillin Sod/ Tazobactam Sod 100 ml @ 200 mls/hr Q6 IVPB Last administered on 08/04/18at 11:59; Admin Dose 200 MLS/HR; Start 08/02/18 at 06:00 Ranitidine HCl (Zantac) 150 mg BID PO Last administered on 08/04/18at 09:16; Admin Dose 150 MG; Start 08/02/18 at 10:00 XAVIER JAVIER Aug 04, 2018 12:23
[2018-08-04 15:03] VITALS: BP 126/74; PULSE 78; RESP 18
--- NOTE | 2018-08-04 18:02 | PDOCDIS ---
Discharge Instructions CONDITION [id number] Patient Condition: [id number] Stable ACTIVITY: [id number] Activity Restrictions: [id number] Slowly Increase Activity Rest between Activity Avoid heavy lifting FOLLOW UP/APPOINTMENTS Follow-up Plan Followup with your primary doctor within the next 1-2 weeks. If you don't have one please let someone know, we can give you resources that may help you pick one. You may call Dr Raymon Thornton's office. he's accepting new patients Name, Degree: Raymon Thornton MD Specialty: Internal Medicine Comments: Office Address: [address] [place] [address] [place], [place] [id number] Office Office You may also call your insurance company to assign one to you. Review your medication list with your nurse before leaving and if you need new prescriptions please let your nurse know. I may have made changes to your home medications or given you new pres criptions, please let your primary doctor know as well. Stay compliant with your medications and report any side effects to your PCP or pharmacist. Return to the ER if you have any concerns and cannot reach your doctors or call your insurance company, they usually have a nurse that can help you. ANGEL MOONEY Aug 04, 2018 18:02
[2018-08-04] MEDS ORDERED: ACET-2047 PO (18:05)
[2018-08-04] MEDS ORDERED: CIPR500T4 PO (18:08)
[2018-08-04] MEDS ORDERED: METR500T PO (18:08)
--- NOTE | 2018-08-04 18:31 | DS ---
DATE OF ADMISSION: 08/01/2018 DATE OF DISCHARGE: 08/04/2018 PRESENTING COMPLAINT: Right upper quadrant abdominal pain of 1 day's duration. DISCHARGE DIAGNOSES: 1. Abdominal pain, nausea and vomiting, likely secondary to choledocholithiasis that has resolved. - Of note that patient is status post cholecystectomy a month ago. - The patient also had an episode of gallstone pancreatitis at the time of cholecystectomy. 2. Choledocholithiasis, now resolved. 3. Transaminases likely secondary to #2, improving. 4. Hypokalemia, repleted. 5. Chronic anemia, stable. 6. Possible urinary tract Lactobacillus urinary tract infection. 7. 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 CONSULTS ON THE CASE: Gena Retana MD, for GI. INTERVENTIONS: Include an MRCP that showed no biliary obstruction, showed post- cholecystectomy and incidental note of horseshoe kidney. SHORT HOSPITALIZATION COURSE: Full details are available in the chart for review. In summary, this patient was referred to this hospital due to insurance reason after she has presented to an outside emergency room with complaints of epigastric pain similar to the ones she had when she had a gallstone pancreatitis after cholecystectomy about a month ago. She was admitted for further mgt. At that time, ultrasound had shown a CBD dilatation of 12 cm, but here when she had an MRCP done, it showed no concern for choledocholithiasis. She is followed by GI. There is likelihood that the patient had passed the stone. The patient was commenced on a diet. Once she is tolerating diet, she can be discharged in stable condition. DISPOSITION: To home. ACTIVITIES: As tolerated. DISCHARGE MEDICATIONS: For complete list of discharge medications, please review the patient's discharge medication list. She will be continued on antibiotics to complete a 5 to 7-day course. FOLLOWUP: She was recommended to follow up with her primary care doctor in the next 1 to 2 weeks to ensure continued resolution of symptoms and to recheck her liver enzymes to ensure it continues to normalize. Time spent on discharge coordination has been more than 45 minutes. Discharge clearance has also been obtained from GI. Dictated By: ANGEL MOONEY MD BA/NTS Conf#: [id number] DID#: [id number] CC: WILFREDO GREGORIO MD;*EndCC* MTDD
== END 2018-08-04 19:16 | disposition home or self-care (01) | DRG 872 ==
LOC: PP2 20:30
PROVIDERS: ADMIT Internal Medicine; ATTEND Family Medicine
DX: A41.9 Sepsis, unspecified organism (principal); K83.09 Other cholangitis; N39.0 Urinary tract infection, site not specified; E87.6 Hypokalemia; D64.9 Anemia, unspecified; Q63.1 Lobulated, fused and horseshoe kidney; Z90.49 Acquired absence of other specified parts of digestive tract
CPT/HCPCS: 71045; 74181; 80053; 80061; 81001; 83690; 83735; 84100; 84443; 84703; 85025; 85610; 85730; 86706; 86803; 87040; 87081; 87086; 87340; 87400; 90686; J1170; J2270; J2405; J2543; J3475; J7030